=== PATIENT | male | born 1945 | race Caucasian/White ===

== ENCOUNTER 2019-11-14 14:59 | Inpatient (IN) ==
[2019-11-14] MEDS ORDERED: SODIUM CHLORIDE 0.9% 1000ML 1,000 ML IV SCH ×2 (15:45→22:30)
[2019-11-14] MEDS ORDERED: ACETAMINOPHEN 500 MG TAB PO STA (15:46)
[2019-11-14] MEDS ORDERED: SODIUM CHLORIDE 0.9% 250 ML IV PRN (15:53)
[2019-11-14] MEDS ORDERED: ACETAMINOPHEN SUSP 160 MG/5 ML UDC GT STA (15:54)
--- NOTE | 2019-11-14 16:27 | XRay Report ---
XR chest 1V portable CLINICAL HISTORY: Fever. COMPARISON STUDY: PET/CT September 14, 2019. FINDINGS: Right internal jugular [id number] is in place. Note is made of mild cardiomegaly without evidence for pulmonary edema. There is no pneumothorax or pleural effusion. There is no consolidatio n to suggest pneumonia. Several old right rib fractures are present. IMPRESSION: No acute cardiopulmonary findings. ACT 112: Negative or not required by law. Electronically signed by: Tristan Simpson M.D. 11/14/2019 4:26 PM
[2019-11-14 16:38] LABS: Hemoglobin 6.5 g/dL (14.0-18.0); Mean Corpuscular Hemoglobin 29.8 pg (25-34); Mean Corpuscular Hgb Conc 34.2 g/dL (32-36); Mean Corpuscular Volume 87.2 fL (80-100); Mean Platelet Volume 9.6 fL (7.4-10.4); Platelet Count 45 K/uL (130-400); RDW Coefficient of Variation 17.9 % (11.5-14.5); RDW Standard Deviation 54.8 fL (36.4-46.3); Red Blood Count 2.18 M/uL (4.7-6.1); White Blood Count 0.28 K/uL (4.8-10.8)
[2019-11-14 16:45] LABS: Alanine Aminotransferase 28 U/L (12-78); Albumin Level 2.7 gm/dl (3.4-5.0); Aspartate Aminotransferase 21 U/L (15-37); BUN Creatinine Ratio 32.4 (10-20); Blood Urea Nitrogen 38 mg/dl (7-18); Calcium 7.8 mg/dl (8.5-10.1); Carbon Dioxide 29 mmol/L (21-32); Chloride 96 mmol/L (98-107); Est GFR (African American) 71.3; Est GFR (Non-African American) 61.5; Glucose 160 mg/dl (70-99); Potassium 3.6 mmol/L (3.5-5.1); Sodium 132 mmol/L (136-145)
[2019-11-14 16:47] LABS: Albumin Globulin Ratio 0.5 (0.9-2); Alkaline Phosphatase 80 U/L (45-117); Bilirubin,Total 0.5 mg/dl (0.2-1); Total Protein 7.7 gm/dl (6.4-8.2)
[2019-11-14] MEDS ORDERED: CEFEPIME 2,000 MG/20 ML VIAL IV STA (16:52)
[2019-11-14] MEDS ORDERED: VANCOMYCIN CONSULT ACTIVE PRN ×2 (17:02→20:00)
[2019-11-14] MEDS ORDERED: VANCOMYCIN HCL 2,750 MG in SODIUM CHLORIDE 0.9% 500 ML IV ONE (17:02)
[2019-11-14 17:29] LABS: Appearance Urine Clear (Clear); Bacteria Urine Automated Negative (Negative); Bilirubin Urine Negative (Negative); Blood Urine Trace (Negative); Color Urine Yellow; Epithelial Cell Urine Auto >30 /lpf (0-5); Glucose Urine UA Negative (Negative); Ketones Urine Negative (Negative); Leukocyte Esterase Urine Negative (Negative); Nitrite Urine Negative (Negative); Protein Urine 2+ (Negative); RBC Urine Automated 0-4 /hpf (0-4); Specific Gravity Urine 1.018 (1.000-1.030); Urobilinogen Urine Negative (Negative); pH Urine 6.5 (4.5-7.5)
[2019-11-14 17:44] LABS: Influenza A virus by PCR Neg for Influ A (Neg); Influenza B virus by PCR Neg for Influ B (Neg)
[2019-11-14 17:58] LABS: Renal Epithelial Cells Urine 0-5 /lpf (0-5)
--- NOTE | 2019-11-14 18:27 | History & Physical Report ---
Date of Service November 14, 2019 Assessment & Plan (1) Neutropenic fever: The patient has presented with neutropenic fever. The source is not clear so far. He does not have any pulmonary symptoms and his chest x-ray is not suggestive of any infection. He does not have any urinary symptoms either and his urinalysis is not very impressive. We will continue vancomycin per pharmacy and cefepime. The changes on the left side of his neck appear chronic and he did not have any pain or tenderness on palpation. If no source is obvious and he continues to have fever, may obtain a CT scan of the neck to rule out any underlying abscess. Will monitor in PCU for today and provide IV fluids Present on Admission?: Yes (2) Malignant neoplasm of head and neck: We will consult oncology to evaluate for administration of Neupogen. Keep n.p.o. and provide nutrition through his PEG tube. He takes Isosource 1.5 six times a day which will be ordered. DVT prophylaxis is contraindicated because of thrombocytopenia. We will continue zolpidem at night as needed for sleep. 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 The patient was diagnosed with head and neck cancer last year and was started on chemoradiation. He finishes radiation a while ago and had last dose of chemotherapy (cisplatin) on 11/03/2019. For the past 2 to 3 days he had been having fever as high as 102 F. He denied any chest pain or shortness of breath. He denied any runny nose or sore throat. He denied any cough. He denied any abdominal pain, diarrhea or constipation. He is n.p.o. because of the head and neck cancer and is dependent on a tube feeds for his nutrition. He denied any recent weight loss. He has some chronic skin changes and some chronic drainage from the left side of his neck because of radiation treatment. He denied any pain or tenderness in his neck. He denied any urinary symptoms. In the ER he was febrile up to 38.8 C and his white blood cell count was 0.28. He was given vancomycin and cefepime and admission to medicine was requested. The patient stated that he applied Silvadene about a week ago to his neck which caused some rash on all of his body. Most of the rash has disappeared but there is some on his arms that has still persisted. He denies any sick contacts. Allergies Allergy/AdvReac Type Severity Reaction Status Date / Time silver sulfadiazine Allergy Rash Verified 11/14/19 17:32 [From Silvadene] Home Medications Home Medications Medication Instructions Recorded Confirmed Type albuterol sulfate [ProAir HFA] 2 puff INHALATION QID PRN 06/02/19 11/14/19 History zolpidem 10 mg tablet 10 mg FEEDING TUBE HS tab 10/31/19 11/14/19 History acetaminophen [Tylenol Extra 500 mg FEEDING TUBE Q6H PRN 11/14/19 11/14/19 History Strength] potassium chloride 20 meq FEEDING TUBE DAILY@1000 11/14/19 11/14/19 History Past Med/Surg History Social History (Updated 06/21/19 @ 08:30 by Nicci Camacho RN) Preferred Language: Greek Communication Ability: Effective Visual Impairment: No Limitations Hearing Ability: Normal Cloud Engagement Partner Required: No Beliefs That Will Affect Care: Moravian Moravian Beliefs: MENNONITE marital status: Current Living Situation: Spouse current occupational status: retired 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 NAD HENT: Normocephalic, atraumatic, pupils round and equally reactive to light, oral mucosa: Dry Neck: Supple, no lymph nodes palpated, palpable swelling on the left side of the neck, nontender, marked redness of the skin which again is nontender CVS: Normal S1, S2. No murmur, rub or gallop. PMI non displaced. Peripheral pulses normal. Resp: Normal percussion. Normal breath sounds bilaterally. No wheezing or rales heard Abdomen: Soft, non tender, no hepatosplenomegaly. Bowel sounds positive. PEG tube in place. Extremities: No pitting edema Neuro: Power 5/5 throughout, grossly normal sensations, DTR's normal Psychiatry: Normal mood, normal thought process Results & Data Vital Signs (Past 12 Hours) Vital Signs Temp Pulse Resp BP Pulse Ox 11/14/19 16:48 113 H 23 104/63 98 11/14/19 15:31 38.8 C H 117 H 22 98/61 L 99 Laboratory Results Laboratory Results - last 24 hr 11/14/19 11/14/19 11/14/19 16:16 16:16 16:16 WBC 0.28 L* RBC 2.18 L Hgb 6.5 L* Hct 19.0 L* MCV 87.2 MCH 29.8 MCHC 34.2 RDW Std Deviation 54.8 H RDW Coeff of Misa 17.9 H Plt Count 45 L MPV 9.6 Immature Gran % (Auto) Cancelled Neut % (Auto) Cancelled Lymph % (Auto) Cancelled [place] % (Auto) Cancelled Eos % (Auto) Cancelled Baso % (Auto) Cancelled Immature Gran # (Auto) Cancelled Neut # (Auto) Cancelled Lymph # (Auto) Cancelled [place] # (Auto) Cancelled Eos # (Auto) Cancelled Baso # (Auto) Cancelled Neutrophils % (Manual) Cancelled Band Neutrophils % Cancelled Lymphocytes % (Manual) Cancelled Prolymphocyte % Cancelled Reactive Lymphs % (Man) Cancelled Monocytes % (Manual) Cancelled Eosinophils % (Manual) Cancelled Basophils % (Manual) Cancelled Metamyelocytes % (Man) Cancelled Myelocytes % (Man) Cancelled Promyelocytes % (Man) Cancelled Blast Cells % (Manual) Cancelled Plasma Cell % (Manual) Cancelled Other Cells % Cancelled Nucleated RBC % Cancelled Neutrophils # (Manual) Cancelled Band Neutrophils # Cancelled Total Absolute Neuts Cancelled Lymphocytes # (Manual) Cancelled Prolymphocyte # Cancelled Reactive Lymphs # Cancelled Total Abs Lymphocytes Cancelled Monocytes # (Manual) Cancelled Eosinophils # (Manual) Cancelled Basophils # (Manual) Cancelled Metamyelocytes # (Man) Cancelled Myelocytes # (Manual) Cancelled Promyelocytes # (Man) Cancelled Blast Cells # (Man) Cancelled Plasma Cell # (Manual) Cancelled Other Cells # Cancelled Nucleated RBCs # (Man) Cancelled Hypersegmented Neuts Cancelled Hyposegmented Neuts Cancelled Hypogranular Neuts Cancelled Large Granular Lymphs Cancelled # Lrg Granular Lymphs Cancelled Hairy Cells Cancelled Smudge Cells Cancelled Toxic Granulation Cancelled Toxic Vacuolation Cancelled Dohle Bodies Cancelled Kandy Rods Cancelled Hypogranular Platelets Cancelled Clumped Platelets Cancelled Giant Platelets Cancelled Platelet Satelliting Cancelled RBC Morphology Cancelled Polychromasia Cancelled Hypochromasia Cancelled Poikilocytosis Cancelled Basophilic Stippling Cancelled Anisocytosis Cancelled Microcytosis Cancelled Macrocytosis Cancelled Spherocytes Cancelled Pappenheimer Bodies Cancelled Sickle Cells Cancelled Target Cells Cancelled Tear Drop Cells Cancelled Ovalocytes Cancelled Stomatocytes Cancelled Bernal-Deans Bodies Cancelled Echinocytes Cancelled Acanthocytes (Spur) Cancelled Rouleaux Cancelled RBC Agglutinates Cancelled Schistocytes Cancelled RBC Morph Comment Cancelled Sezary Cell Cancelled Sodium 132 L Potassium 3.6 Chloride 96 L Carbon Dioxide 29 Anion Gap 7.0 BUN 38 H Creatinine 1.17 Est Cr Clr Drug Dosing Not Reportable Est GFR ( Amer) 71.3 Est GFR (Non-Af Amer) 61.5 BUN/Creatinine Ratio 32.4 H Glucose 160 H Lactate 2.6 H* Calcium 7.8 L Total Bilirubin 0.5 AST 21 ALT 28 Alkaline Phosphatase 80 Total Protein 7.7 Albumin 2.7 L Globulin 5.0 H Albumin/Globulin Ratio 0.5 L Urine Color Urine Appearance Urine pH Ur Specific [place] Urine Protein Urine Glucose (UA) Urine Ketones Urine Blood Urine Nitrite Urine Bilirubin Urine Urobilinogen Ur Leukocyte Esterase Urine WBC (Auto) Urine RBC (Auto) U Hyaline Cast (Auto) U Epithel Cells (Auto) Urine Bacteria (Auto) Ur Renal Epithelial Cell Urine Yeast Influenza Type A (PCR) Influenza Type B (PCR) Blood Type Antibody Screen Crossmatch 11/14/19 11/14/19 11/14/19 16:28 16:58 16:58 WBC RBC Hgb Hct MCV MCH MCHC RDW Std Deviation RDW Coeff of Misa Plt Count MPV Immature Gran % (Auto) Neut % (Auto) Lymph % (Auto) [place] % (Auto) Eos % (Auto) Baso % (Auto) Immature Gran # (Auto) Neut # (Auto) Lymph # (Auto) [place] # (Auto) Eos # (Auto) Baso # (Auto) Neutrophils % (Manual) Band Neutrophils % Lymphocytes % (Manual) Prolymphocyte % Reactive Lymphs % (Man) Monocytes % (Manual) Eosinophils % (Manual) Basophils % (Manual) Metamyelocytes % (Man) Myelocytes % (Man) Promyelocytes % (Man) Blast Cells % (Manual) Plasma Cell % (Manual) Other Cells % Nucleated RBC % Neutrophils # (Manual) Band Neutrophils # Total Absolute Neuts Lymphocytes # (Manual) Prolymphocyte # Reactive Lymphs # Total Abs Lymphocytes Monocytes # (Manual) Eosinophils # (Manual) Basophils # (Manual) Metamyelocytes # (Man) Myelocytes # (Manual) Promyelocytes # (Man) Blast Cells # (Man) Plasma Cell # (Manual) Other Cells # Nucleated RBCs # (Man) Hypersegmented Neuts Hyposegmented Neuts Hypogranular Neuts Large Granular Lymphs # Lrg Granular Lymphs Hairy Cells Smudge Cells Toxic Granulation Toxic Vacuolation Dohle Bodies Kandy Rods Hypogranular Platelets Clumped Platelets Giant Platelets Platelet Satelliting RBC Morphology Polychromasia Hypochromasia Poikilocytosis Basophilic Stippling Anisocytosis Microcytosis Macrocytosis Spherocytes Pappenheimer Bodies Sickle Cells Target Cells Tear Drop Cells Ovalocytes Stomatocytes Bernal-Deans Bodies Echinocytes Acanthocytes (Spur) Rouleaux RBC Agglutinates Schistocytes RBC Morph Comment Sezary Cell Sodium Potassium Chloride Carbon Dioxide Anion Gap BUN Creatinine Est Cr Clr Drug Dosing Est GFR ( Amer) Est GFR (Non-Af Amer) BUN/Creatinine Ratio Glucose Lactate Calcium Total Bilirubin AST ALT Alkaline Phosphatase Total Protein Albumin Globulin Albumin/Globulin Ratio Urine Color Yellow Urine Appearance Clear Urine pH 6.5 Ur Specific [place] 1.018 Urine Protein 2+ H Urine Glucose (UA) Negative Urine Ketones Negative Urine Blood Trace H Urine Nitrite Negative Urine Bilirubin Negative Urine Urobilinogen Negative Ur Leukocyte Esterase Negative Urine WBC (Auto) 5-10 H Urine RBC (Auto) 0-4 U Hyaline Cast (Auto) 1-5 U Epithel Cells (Auto) >30 H Urine Bacteria (Auto) Negative Ur Renal Epithelial Cell 0-5 Urine Yeast Budding A Influenza Type A (PCR) Neg for Influ A Influenza Type B (PCR) Neg for Influ B Blood Type O Negative Antibody Screen NEGATIVE Crossmatch See Detail Diagnostic Findings Chest x-ray, my interpretation: No acute infiltrate Code Status & VTE Plan VTE Prophylaxis Plan VTE Prophylaxis will be ordered: No
[2019-11-14] MEDS ORDERED: ZOLPIDEM TARTRATE 10 MG TAB PO PRN (20:00)
--- NOTE | 2019-11-14 20:06 | Emergency Department Note ---
Entered by Mari Samuels acting as a scribe for Elaina Morelos MD History of Present Illness General Chief complaint: Referred by Doctor Stated complaint: THROAT CANCER REFFERED BY Source: patient History of Present Illness Onset (ago): day(s) (today) Location: neck Pain Consistency: + other (episode) Maximum Pain Intensity: 0 Quality: + other (referral by a doctor) Associated symptoms: + denies other symptoms (bleeding from anywhere, swelling, urinary symptoms, difficulty moving his bowels), + fever/chills (fever) and + other (low hemoglobin, phlegm production); no nausea/vomiting (vomiting) and no rash The patient is a 74 year old male who presents to the Emergency Room with complaints of an episode of a referral by a doctor occurring today. The patient states that he has cancer in his neck and gets radiation for it. He notes that this morning he had blood work done at [facility] that showed his hemoglobin was 6.1. He reports that he was called and told that he needed to have a transfusion tomorrow morning, but if he couldnt wait, to come to the ED. The patient sates that he didnt feel comfortable waiting because he has also been waking up every morning with a fever of 102. He notes that this morning it was 102.7. He notes that when he first would get chemo to would go to 101, but would come down with Tylenol. He states that it was just his bodys way of regulating itself. He reports that now it has been worse and doesnt come down as easily. The patient complains of a lot of phlegm produced from the cancer in his throat. He notes his last chemo was on the 03 of November and his last radiation was the 10 of November. He notes that he has had 5 blood transfusions since his diagnosis. He notes that he was last transfused 2 weeks ago. The patient denies a cough, bleeding from anywhere, swelling, urinary symptoms, difficulty moving his bowels, vomiting, and new rash. Home Medications Home Medications Medication Instructions Recorded Confirmed Type albuterol sulfate [ProAir HFA] 2 puff INHALATION QID PRN 06/02/19 11/14/19 History zolpidem 10 mg tablet 10 mg FEEDING TUBE HS tab 10/31/19 11/14/19 History acetaminophen [Tylenol Extra 500 mg FEEDING TUBE Q6H PRN 11/14/19 11/14/19 History Strength] potassium chloride 20 meq FEEDING TUBE DAILY@1000 11/14/19 11/14/19 History Allergies Allergy/AdvReac Type Severity Reaction Status Date / Time silver sulfadiazine Allergy Rash Verified 11/14/19 17:32 [From Silvadene] Past Med/Surg History Medical History Alcohol abuse (Chronic) Cellulitis and abscess of left lower extremity Chronic prostatitis (Chronic) Chronic steroid use (Chronic) Difficulty swallowing (Chronic) Started approx. 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---plan to start radiation and chemo Ulcer of calf Surgical History History of biopsy (Chronic) FNA of thyroid nodule showed squamous cell carcinoma 05/23/19 History of colonoscopy (Resolved) Multiple;Adenomatous poly; History of nasal septoplasty (Resolved) History of open reduction and internal fixation (ORIF) procedure (Resolved) right wrist/elbow--hardware in place;Related to fracture and a fall History of prostate biopsy (Resolved) x3--benign History of tonsillectomy and adenoidectomy (Resolved) Hx of right inguinal hernia repair (Resolved) x2 Hx of vasectomy (Resolved) S/P percutaneous endoscopic gastrostomy (PEG) tube placement (Acute) S/P percutaneous endoscopic gastrostomy (PEG) tube placement Family History Mother Endometrial cancer Father , 78yo Parkinsons Brother COPD (chronic obstructive pulmonary disease) Brother Unknown family medical history Sister Breast cancer Colorectal cancer Sleep apnea GERD (gastroesophageal reflux disease) Son Hypertension Daughter No problems noted. 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 and A total of 10 systems reviewed and were otherwise negative Physical Exam Vital Signs Vital Signs - 24 hr 11/14/19 15:31 11/14/19 16:48 11/14/19 17:30 Temperature 38.8 C H Temperature Source Oral Pulse Rate 117 H 113 H 113 H Pulse Rate from SpO2 Sensor 113 H Respiratory Rate 22 23 25 H Blood Pressure 98/61 L 104/63 Blood Pressure Mean 73 72 Pulse Oximetry 99 98 Oxygen Delivery Method Room Air Room Air Sepsis Recent Fever Within 48 Hours Yes Sepsis New/Unexplained Change in Mental Status No Sepsis Action Taken by Nursing Physician Notified 11/14/19 18:00 Temperature Temperature Source Pulse Rate 114 H Pulse Rate from SpO2 Sensor Respiratory Rate 21 Blood Pressure Blood Pressure Mean Pulse Oximetry Oxygen Delivery Method Sepsis Recent Fever Within 48 Hours Sepsis New/Unexplained Change in Mental Status Sepsis Action Taken by Nursing Vital signs reviewed. Noted to be febrile and tachycardic. General: Chronically ill-appearing male, in no significant distress. No discomfort. Spitting up saliva. HEENT: No scleral icterus, PERRLA, neck supple. Tracheostomy in place with some radiation changes to the skin. Cardiovascular: Tachycardic rate and regular rhythm, no extra sounds. Pulmonary: Clear to auscultation bilaterally, normal work of breathing. Abdomen: Soft, nontender, nondistended, positive bowel sounds. G-tube in left upper quadrant. Musculoskeletal: Atraumatic, no peripheral edema. Neurologic: Patient awake alert and oriented x 3. Skin: Warm, dry. Radiation changes to the skin noted on the anterior neck. Course Course 154: The patient was evaluated in room C10. A complete history and physical exam was performed. 1646: I reevaluated the patient and he signed the blood consent at this time. 1656: I discussed the patient's case with Dr. Hsieh- Oncology. No need for irradiated blood. 1703: I reevaluated the patient and updated him on his test results. I discussed the treatment plan with him. He verbally agrees and understands. 1734: I discussed the patient's case with [facility]. He will evaluate the patient for further management. Administered Medications Filgrastim (Neupogen) 300 mcg SQ DAILY [facility] Stop: 12/16/19 11:29 Last Admin: 11/16/19 12:33 Dose: 300 mcg Documented by: [id number] Cefepime HCl 2,000 mg/ Syringe 20 mls @ 5.5 mls/min IV Q8H [facility]; Protocol Stop: 11/17/19 04:59 Last Admin: 11/16/19 12:10 Dose: 5.5 mls/min Documented by: [id number] Admin: 11/16/19 04:52 Dose: 5.5 mls/min Documented by: [id number] Admin: 11/15/19 21:51 Dose: 5.5 mls/min Documented by: [id number] Admin: 11/15/19 13:26 Dose: 5.5 mls/min Documented by: [id number] Admin: 11/15/19 05:38 Dose: 5.5 mls/min Documented by: [id number] Acetaminophen (Ofirmev) 1,000 mg in 100 mls @ 400 mls/hr IV Q8H PRN PRN Reason: Fever Stop: 11/17/19 22:20 Last Infusion: 11/15/19 16:29 Dose: 0 mls/hr Documented by: [id number] Admin: 11/15/19 16:14 Dose: 400 mls/hr Documented by: [id number] Lorazepam (Ativan) 0.5 mg in 1 mls @ 0.5 mls/min IV Q8 PRN PRN Reason: Anxiety Stop: 12/14/19 22:26 Last Admin: 11/16/19 18:05 Dose: 0.5 mls/min Documented by: [id number] Admin: 11/15/19 19:03 Dose: 0.5 mls/min Documented by: [id number] Vancomycin HCl 750 mg/ Sodium (Chloride) 265 mls @ 125 mls/hr IV Q12@0700,1900 [facility]; Protocol Stop: 11/17/19 07:29 Last Admin: 11/16/19 18:05 Dose: 125 mls/hr Documented by: [id number] Infusion: 11/16/19 11:54 Dose: 0 mls/hr Documented by: [id number] Admin: 11/16/19 08:59 Dose: 125 mls/hr Documented by: [id number] Infusion: 11/15/19 22:32 Dose: 0 mls/hr Documented by: [id number] Admin: 11/15/19 20:24 Dose: 125 mls/hr Documented by: [id number] Infusion: 11/15/19 10:37 Dose: 0 mls/hr Documented by: [id number] Admin: 11/15/19 08:23 Dose: 125 mls/hr Documented by: [id number] Fluconazole (Diflucan) 100 mg in 50 mls @ 100 mls/hr IV DAILY@1700 [facility]; Protocol Stop: 12/16/19 16:59 Last Infusion: 11/16/19 16:53 Dose: 100 mls/hr Documented by: [id number] Admin: 11/16/19 16:20 Dose: 100 mls/hr Documented by: [id number] Ioversol (Optiray 320 100ml) 93 ml IV ONCE PRN PRN Reason: Interaction Checking Stop: 11/19/19 11:02 Last Admin: 11/15/19 11:03 Dose: 93 ml Documented by: [id number] Miscellaneous (Check Scopolamine Patch Placement) 1 ea N/A QS [facility] Stop: 12/15/19 00:00 Last Admin: 11/16/19 15:00 Dose: 1 ea Documented by: [id number] Admin: 11/16/19 08:48 Dose: 1 ea Documented by: [id number] Admin: 11/16/19 00:08 Dose: 1 ea Documented by: [id number] Admin: 11/15/19 17:03 Dose: 1 ea Documented by: [id number] Admin: 11/15/19 08:24 Dose: 1 ea Documented by: [id number] Admin: 11/14/19 23:45 Dose: 1 ea Documented by: [id number] Potassium Chloride (Christine Ciel Elix) 20 meq PEG BID [facility] Stop: 12/16/19 11:29 Last Admin: 11/16/19 12:10 Dose: 20 meq Documented by: [id number] Zolpidem Tartrate (Ambien) 10 mg PO HS [facility] Stop: 12/15/19 20:59 Last Admin: 11/15/19 22:00 Dose: 10 mg Documented by: [id number] Discontinued Medications Acetaminophen (Tylenol) 1,000 mg PO NOW STA Stop: 11/14/19 15:47 Last Admin: 11/14/19 17:23 Dose: Not Given Documented by: [id number] Acetaminophen (Children's Acetaminophen) 1,000 mg GT NOW STA Stop: 11/14/19 15:55 Last Admin: 11/14/19 16:40 Dose: 1,000 mg Documented by: [id number] Diphenhydramine HCl (Benadryl) 25 mg IV PRE-TREAT ONE Stop: 11/16/19 02:17 Last Admin: 11/15/19 21:59 Dose: 25 mg Documented by: [id number] Fluconazole (Diflucan) 100 mg PO [facility]; Protocol Stop: 11/20/19 13:59 Last Admin: 11/15/19 17:05 Dose: Not Given Documented by: [id number] Sodium Chloride (Nss 1000ml) 1,000 mls @ 999 mls/hr IV .Q1H1M [facility] Stop: 11/14/19 16:45 Last Infusion: 11/14/19 18:27 Dose: 0 mls/hr Documented by: [id number] Admin: 11/14/19 17:04 Dose: 999 mls/hr Documented by: [id number] Cefepime HCl (Maxipime) 2,000 mg in 20 mls @ 5 mls/min IV NOW STA; Protocol Stop: 11/14/19 16:55 Last Admin: 11/14/19 17:04 Dose: 5 mls/min Documented by: [id number] Vancomycin HCl 2,750 mg/ (Sodium Chloride) 555 mls @ 200 mls/hr IV NOW ONE Stop: 11/14/19 19:31 Last Infusion: 11/14/19 21:25 Dose: 0 mls/hr Documented by: [id number] Admin: 11/14/19 18:38 Dose: 200 mls/hr Documented by: [id number] Sodium Chloride (Nss 1000ml) 1,000 mls @ 100 mls/hr IV .Q10H [facility] Stop: 12/14/19 22:29 Last Infusion: 11/15/19 08:23 Dose: 0 mls/hr Documented by: [id number] Admin: 11/14/19 23:19 Dose: 100 mls/hr Documented by: [id number] Potassium Chloride 20 meq/ (Lactated Ringer's) 1,010 mls @ 80 mls/hr IV .[id number] [facility] Stop: 12/15/19 07:59 Last Infusion: 11/15/19 18:01 Dose: 0 mls/hr Documented by: [id number] Admin: 11/15/19 17:14 Dose: 80 mls/hr Documented by: [id number] Infusion: 11/15/19 17:14 Dose: 100 mls/hr Documented by: [id number] Infusion: 11/15/19 13:22 Dose: 100 mls/hr Documented by: [id number] Infusion: 11/15/19 08:24 Dose: 0 mls/hr Documented by: [id number] Admin: 11/15/19 08:23 Dose: 100 mls/hr Documented by: [id number] Magnesium Sulfate/Dextrose (Magnesium Sulfate / D5w) 1 gm in 100 mls @ 100 mls/hr IV Q1H [facility] Stop: 11/15/19 12:29 Last Infusion: 11/15/19 13:22 Dose: 0 mls/hr Documented by: [id number] Admin: 11/15/19 12:13 Dose: 100 mls/hr Documented by: [id number] Infusion: 11/15/19 11:36 Dose: 100 mls/hr Documented by: [id number] Admin: 11/15/19 10:36 Dose: 100 mls/hr Documented by: [id number] Infusion: 11/15/19 10:22 Dose: 50 mls/hr Documented by: [id number] Infusion: 11/15/19 08:25 Dose: 50 mls/hr Documented by: [id number] Admin: 11/15/19 08:23 Dose: 100 mls/hr Documented by: [id number] Potassium Phosphate 9 mmol/ (Sodium Chloride) 253 mls @ 168 mls/hr IV ONE ONE Stop: 11/15/19 09:30 Last Infusion: 11/15/19 12:13 Dose: 0 mls/hr Documented by: [id number] Infusion: 11/15/19 08:24 Dose: 75 mls/hr Documented by: [id number] Admin: 11/15/19 08:23 Dose: 168 mls/hr Documented by: [id number] Fluconazole (Diflucan) 100 mg in 50 mls @ 100 mls/hr IV NOW ONE; Protocol Stop: 11/15/19 17:29 Last Infusion: 11/15/19 17:45 Dose: 0 mls/hr Documented by: [id number] Admin: 11/15/19 17:15 Dose: 100 mls/hr Documented by: [id number] Potassium Chloride (K Javier / Wtr) 10 meq in 100 mls @ 100 mls/hr IV Q1H [facility] Stop: 11/15/19 19:59 Last Infusion: 11/15/19 20:10 Dose: 0 mls/hr Documented by: [id number] Admin: 11/15/19 19:10 Dose: 100 mls/hr Documented by: [id number] Infusion: 11/15/19 19:07 Dose: 100 mls/hr Documented by: [id number] Admin: 11/15/19 18:07 Dose: 100 mls/hr Documented by: [id number] Potassium Phosphate 15 mmol/ (Sodium Chloride) 255 mls @ 88 mls/hr IV ONE ONE Stop: 11/15/19 21:23 Last Infusion: 11/15/19 21:49 Dose: 0 mls/hr Documented by: [id number] Admin: 11/15/19 18:55 Dose: 88 mls/hr Documented by: [id number] Acetaminophen (Ofirmev) 1,000 mg in 100 mls @ 400 mls/hr IV TODAY@2000 [facility] Stop: 11/15/19 23:59 Last Infusion: 11/15/19 22:14 Dose: 0 mls/hr Documented by: [id number] Admin: 11/15/19 21:59 Dose: 400 mls/hr Documented by: [id number] Potassium Chloride (K Javier / Wtr) 10 meq in 100 mls @ 100 mls/hr IV Q1H [facility] Stop: 11/16/19 11:14 Last Infusion: 11/16/19 12:15 Dose: 0 mls/hr Documented by: [id number] Admin: 11/16/19 11:14 Dose: 100 mls/hr Documented by: [id number] Infusion: 11/16/19 11:01 Dose: 100 mls/hr Documented by: [id number] Admin: 11/16/19 10:01 Dose: 100 mls/hr Documented by: [id number] Miscellaneous (Stop Order) 1 ea N/A TODAY@2014 ONE Stop: 11/14/19 20:16 Last Admin: 11/14/19 20:58 Dose: 1 ea Documented by: [id number] Scopolamine (Transderm-Scop) 1.5 mg TD ONE ONE Stop: 11/14/19 21:45 Last Admin: 11/14/19 22:02 Dose: 1.5 mg Documented by: [id number] Critical Care Time Critical Care Time: Yes Total Critical Care Time: 35 I have personally spent 35 minutes of critical care time in the direct management of this patient. This includes bedside care, interpretation of diagnostic studies, and testing, discussion with consultants, patient, and family members, and other required patient management activities. This 35 minutes is in excess of all separately billable procedures. Medical Decision Making Differential Diagnosis Differential diagnosis includes etiologies such as sepsis, UTI, pneumonia, metabolic, electrolyte abnormalities, cardiac sources, intracerebral event, toxicologic, neurologic, as well as others were entertained. Medical Records Attestation: I reviewed the patient's medical records. Home Medications Current Medication List: was personally reviewed by me Laboratory Data Attestation: I reviewed the patient's lab results. Result diagrams: 11/16/19 07:28 11/16/19 07:28 Lab Results 11/14/19 11/14/19 11/14/19 Range/Units 16:16 16:16 16:16 WBC 0.28 L* (4.8-10.8) K/uL RBC 2.18 L (4.7-6.1) M/uL Hgb 6.5 L* (14.0-18.0) g/dL Hct 19.0 L* (42-52) % MCV 87.2 (80-100) fL MCH 29.8 (25-34) pg MCHC 34.2 (32-36) g/dL RDW Std Deviation 54.8 H (36.4-46.3) fL RDW Coeff of Misa 17.9 H (11.5-14.5) % Plt Count 45 L (130-400) K/uL MPV 9.6 (7.4-10.4) fL Immature Gran % (Auto) Cancelled Neut % (Auto) Cancelled Lymph % (Auto) Cancelled [place] % (Auto) Cancelled Eos % (Auto) Cancelled Baso % (Auto) Cancelled Immature Gran # (Auto) Cancelled Neut # (Auto) Cancelled Lymph # (Auto) Cancelled [place] # (Auto) Cancelled Eos # (Auto) Cancelled Baso # (Auto) Cancelled Neutrophils % (Manual) Cancelled Band Neutrophils % Cancelled Lymphocytes % (Manual) Cancelled Prolymphocyte % Cancelled Reactive Lymphs % (Man) Cancelled Monocytes % (Manual) Cancelled Eosinophils % (Manual) Cancelled Basophils % (Manual) Cancelled Metamyelocytes % (Man) Cancelled Myelocytes % (Man) Cancelled Promyelocytes % (Man) Cancelled Blast Cells % (Manual) Cancelled Plasma Cell % (Manual) Cancelled Other Cells % Cancelled Nucleated RBC % Cancelled Neutrophils # (Manual) Cancelled Band Neutrophils # Cancelled Total Absolute Neuts Cancelled Lymphocytes # (Manual) Cancelled Prolymphocyte # Cancelled Reactive Lymphs # Cancelled Total Abs Lymphocytes Cancelled Monocytes # (Manual) Cancelled Eosinophils # (Manual) Cancelled Basophils # (Manual) Cancelled Metamyelocytes # (Man) Cancelled Myelocytes # (Manual) Cancelled Promyelocytes # (Man) Cancelled Blast Cells # (Man) Cancelled Plasma Cell # (Manual) Cancelled Other Cells # Cancelled Nucleated RBCs # (Man) Cancelled Hypersegmented Neuts Cancelled Hyposegmented Neuts Cancelled Hypogranular Neuts Cancelled Large Granular Lymphs Cancelled # Lrg Granular Lymphs Cancelled Hairy Cells Cancelled Smudge Cells Cancelled Toxic Granulation Cancelled Toxic Vacuolation Cancelled Dohle Bodies Cancelled Kandy Rods Cancelled Hypogranular Platelets Cancelled Clumped Platelets Cancelled Giant Platelets Cancelled Platelet Satelliting Cancelled RBC Morphology Cancelled Polychromasia Cancelled Hypochromasia Cancelled Poikilocytosis Cancelled Basophilic Stippling Cancelled Anisocytosis Cancelled Microcytosis Cancelled Macrocytosis Cancelled Spherocytes Cancelled Pappenheimer Bodies Cancelled Sickle Cells Cancelled Target Cells Cancelled Tear Drop Cells Cancelled Ovalocytes Cancelled Stomatocytes Cancelled [place] Bodies Cancelled Echinocytes Cancelled Acanthocytes (Spur) Cancelled Rouleaux Cancelled RBC Agglutinates Cancelled Schistocytes Cancelled RBC Morph Comment Cancelled Sezary Cell Cancelled Sodium 132 L (136-145) mmol/L Potassium 3.6 (3.5-5.1) mmol/L Chloride 96 L (98-107) mmol/L Carbon Dioxide 29 (21-32) mmol/L Anion Gap 7.0 (3-11) BUN 38 H (7-18) mg/dl Creatinine 1.17 (0.6-1.4) mg/dl Est Cr Clr Drug Dosing Not Reportable Est GFR ( Amer) 71.3 Est GFR (Non-Af Amer) 61.5 BUN/Creatinine Ratio 32.4 H (10-20) Glucose 160 H (70-99) mg/dl Lactate 2.6 H* (0.4-2.0) mmol/L Calcium 7.8 L (8.5-10.1) mg/dl Total Bilirubin 0.5 (0.2-1) mg/dl AST 21 (15-37) U/L ALT 28 (12-78) U/L Alkaline Phosphatase 80 (45-117) U/L Total Protein 7.7 (6.4-8.2) gm/dl Albumin 2.7 L (3.4-5.0) gm/dl Globulin 5.0 H (2.5-4.0) gm/dl Albumin/Globulin Ratio 0.5 L (0.9-2) Urine Color Urine Appearance (Clear) Urine pH (4.5-7.5) Ur Specific [place] (1.000-1.030) Urine Protein (Negative) Urine Glucose (UA) (Negative) Urine Ketones (Negative) Urine Blood (Negative) Urine Nitrite (Negative) Urine Bilirubin (Negative) Urine Urobilinogen (Negative) Ur Leukocyte Esterase (Negative) Urine WBC (Auto) (0-5) /hpf Urine RBC (Auto) (0-4) /hpf U Hyaline Cast (Auto) (0-5) /lpf U Epithel Cells (Auto) (0-5) /lpf Urine Bacteria (Auto) (Negative) Ur Renal Epithelial Cell (0-5) /lpf Urine Yeast (None Prsent) Influenza Type A (PCR) (Neg) Influenza Type B (PCR) (Neg) Blood Type Antibody Screen Crossmatch 11/14/19 11/14/19 11/14/19 Range/Units 16:28 16:58 16:58 WBC (4.8-10.8) K/uL RBC (4.7-6.1) M/uL Hgb (14.0-18.0) g/dL Hct (42-52) % MCV (80-100) fL MCH (25-34) pg MCHC (32-36) g/dL RDW Std Deviation (36.4-46.3) fL RDW Coeff of Misa (11.5-14.5) % Plt Count (130-400) K/uL MPV (7.4-10.4) fL Immature Gran % (Auto) Neut % (Auto) Lymph % (Auto) [place] % (Auto) Eos % (Auto) Baso % (Auto) Immature Gran # (Auto) Neut # (Auto) Lymph # (Auto) [place] # (Auto) Eos # (Auto) Baso # (Auto) Neutrophils % (Manual) Band Neutrophils % Lymphocytes % (Manual) Prolymphocyte % Reactive Lymphs % (Man) Monocytes % (Manual) Eosinophils % (Manual) Basophils % (Manual) Metamyelocytes % (Man) Myelocytes % (Man) Promyelocytes % (Man) Blast Cells % (Manual) Plasma Cell % (Manual) Other Cells % Nucleated RBC % Neutrophils # (Manual) Band Neutrophils # Total Absolute Neuts Lymphocytes # (Manual) Prolymphocyte # Reactive Lymphs # Total Abs Lymphocytes Monocytes # (Manual) Eosinophils # (Manual) Basophils # (Manual) Metamyelocytes # (Man) Myelocytes # (Manual) Promyelocytes # (Man) Blast Cells # (Man) Plasma Cell # (Manual) Other Cells # Nucleated RBCs # (Man) Hypersegmented Neuts Hyposegmented Neuts Hypogranular Neuts Large Granular Lymphs # Lrg Granular Lymphs Hairy Cells Smudge Cells Toxic Granulation Toxic Vacuolation Dohle Bodies Kandy Rods Hypogranular Platelets Clumped Platelets Giant Platelets Platelet Satelliting RBC Morphology Polychromasia Hypochromasia Poikilocytosis Basophilic Stippling Anisocytosis Microcytosis Macrocytosis Spherocytes Pappenheimer Bodies Sickle Cells Target Cells Tear Drop Cells Ovalocytes Stomatocytes [place] Bodies Echinocytes Acanthocytes (Spur) Rouleaux RBC Agglutinates Schistocytes RBC Morph Comment Sezary Cell Sodium (136-145) mmol/L Potassium (3.5-5.1) mmol/L Chloride (98-107) mmol/L Carbon Dioxide (21-32) mmol/L Anion Gap (3-11) BUN (7-18) mg/dl Creatinine (0.6-1.4) mg/dl Est Cr Clr Drug Dosing Est GFR ( Amer) Est GFR (Non-Af Amer) BUN/Creatinine Ratio (10-20) Glucose (70-99) mg/dl Lactate (0.4-2.0) mmol/L Calcium (8.5-10.1) mg/dl Total Bilirubin (0.2-1) mg/dl AST (15-37) U/L ALT (12-78) U/L Alkaline Phosphatase (45-117) U/L Total Protein (6.4-8.2) gm/dl Albumin (3.4-5.0) gm/dl Globulin (2.5-4.0) gm/dl Albumin/Globulin Ratio (0.9-2) Urine Color Yellow Urine Appearance Clear (Clear) Urine pH 6.5 (4.5-7.5) Ur Specific [place] 1.018 (1.000-1.030) Urine Protein 2+ H (Negative) Urine Glucose (UA) Negative (Negative) Urine Ketones Negative (Negative) Urine Blood Trace H (Negative) Urine Nitrite Negative (Negative) Urine Bilirubin Negative (Negative) Urine Urobilinogen Negative (Negative) Ur Leukocyte Esterase Negative (Negative) Urine WBC (Auto) 5-10 H (0-5) /hpf Urine RBC (Auto) 0-4 (0-4) /hpf U Hyaline Cast (Auto) 1-5 (0-5) /lpf U Epithel Cells (Auto) >30 H (0-5) /lpf Urine Bacteria (Auto) Negative (Negative) Ur Renal Epithelial Cell 0-5 (0-5) /lpf Urine Yeast Budding A (None Prsent) Influenza Type A (PCR) Neg for Influ A (Neg) Influenza Type B (PCR) Neg for Influ B (Neg) Blood Type O Negative Antibody Screen NEGATIVE Crossmatch See Detail Imaging Data Radiologist's Impression: Radiology results as stated below per my review and the radiologist's interpretation: XR chest 1V portable CLINICAL HISTORY: Fever. COMPARISON STUDY: PET/CT September 14, 2019. FINDINGS: Right internal jugular [id number] is in place. Note is made of mild cardiomegaly without evidence for pulmonary edema. There is no pneumothorax or pleural effusion. There is no consolidation to suggest pneumonia. Several old right rib fractures are present. IMPRESSION: No acute cardiopulmonary findings. ACT 112: Negative or not required by law. Electronically signed by: Tristan Simpson M.D. 11/14/2019 4:26 PM ECG Data Additional Comments: An order for cardiac monitoring was placed and pt found to be in a sinus tachycardia at 115 bpm Blood Pressure Blood Pressure Findings: Normal blood pressure Blood Pressure Disposition: did not require urgent referral MDM Narrative This pt was evaluated and appeared to be in no distress. Pt is found to be febrile and tachycardic. IV access was obtained and IVF were initiated. Blood cx and lactate were ordered. IV cefepime and vancomycin were administered as pt is noted to be markedly leukopenic. No differential was performed as WBC is too low. Lactate is 2.6 with hbg 6.5. PRBC were ordered and consent signed. Consult was placed with Dr Hsieh of oncology. He states pt does not need irradiated blood products. Case was d/w [facility] hospitalist who will evaluate for further management. Pt is aware of the plan anad agrees. Impression & Plan Sepsis, Neutropenia, Anemia Discharge Plan Visit Data *Final* Discharge Date/Time: 11/14/19 19:19 Chief Complaint: Referred by Doctor Stated Complaint: THROAT CANCER REFFERED BY ED Provider: Elaina Morelos Discharge Problem: Sepsis, Neutropenia, Anemia Patient Disposition: Admitted As Inpatient Discharge Instructions Interventions: ED Discharge Assessment Last Done: 11/14/19 19:19 Discharge Problem: Sepsis Qualifiers: Sepsis type: sepsis due to unspecified organism Sepsis acute organ dysfunction status: unspecified Qualified Code(s): A41.9 - Sepsis, unspecified organism Neutropenia Qualifiers: Neutropenia type: secondary to cancer chemotherapy Qualified Code(s): D70.1 - Agranulocytosis secondary to cancer chemotherapy Anemia Qualifiers: Anemia type: bone marrow failure Bone marrow failure anemia type: pancytopenia, antineoplastic chemotherapy-induced Qualified Code(s): D61.810 - Antineoplastic chemotherapy induced pancytopenia The scribe's documentation has been prepared under my direction and personally reviewed by me in its entirety. I confirm that the note above accurately reflects all work, treatment, procedures, and medical decision making performed by me.
[2019-11-14] MEDS ORDERED: [UNRECOGNIZED DRUG - REMARK] ONE (20:15)
[2019-11-14] MEDS ORDERED: SCOPOLAMINE 1.5 MG TDSY TD ONE (21:44)
[2019-11-14] MEDS ORDERED: ACETAMINOPHEN 1,000 MG/100 ML VIAL IV PRN (22:21)
[2019-11-14] MEDS ORDERED: ATROPINE SULFATE 1% OP SOLN 2 ML BTL SL PRN (22:23)
[2019-11-14] MEDS ORDERED: ALBUTEROL HFA 8 GM INHALER INH PRN (22:33)
[2019-11-14] MEDS: CHECK SCOPOLAMINE PATCH PLACEMENT SCH (23:45)
[2019-11-15] MEDS: CEFEPIME 2,000 MG in SYRINGE 7.5 ML IV SCH ×3 (05:38→21:51)
[2019-11-15 06:35] LABS: Hematocrit (blood only) 20.7 % (42-52); Hemoglobin 7.1 g/dL (14.0-18.0); Mean Corpuscular Hemoglobin 29.8 pg (25-34); Mean Corpuscular Hgb Conc 34.3 g/dL (32-36); Mean Platelet Volume 9.4 fL (7.4-10.4); Platelet Count 40 K/uL (130-400); RDW Coefficient of Variation 16.8 % (11.5-14.5); RDW Standard Deviation 49.8 fL (36.4-46.3); Red Blood Count 2.38 M/uL (4.7-6.1); White Blood Count 0.28 K/uL (4.8-10.8)
[2019-11-15 07:03] LABS: BUN Creatinine Ratio 35.7 (10-20); Calcium 7.5 mg/dl (8.5-10.1); Creatinine Clr Calc Pharmacy 63.9 ml/min; Est GFR (African American) 98.3; Est GFR (Non-African American) 84.8; Magnesium 1.2 mg/dl (1.8-2.4); Phosphorus 1.6 mg/dl (2.5-4.9)
[2019-11-15] MEDS ORDERED: POTASSIUM PHOS 3 MMOL/1 ML INFUSION IV STA ×2 (07:41→18:13)
[2019-11-15] MEDS ORDERED: POTASSIUM PHOSPHATE 9 MMOL in SODIUM CHLORIDE 0.9% 250 ML IV ONE (08:00)
[2019-11-15 08:18] LABS: Albumin Level 2.3 gm/dl (3.4-5.0); Bilirubin Direct 0.3 mg/dl (0-0.2); Bilirubin,Total 1.1 mg/dl (0.2-1); Total Protein 6.9 gm/dl (6.4-8.2)
[2019-11-15] MEDS: POTASSIUM CHLORIDE 20 MEQ in LACTATED RINGER'S 1,000 ML IV SCH ×2 (08:23→17:14)
[2019-11-15] MEDS: MAGNESIUM SULFATE / D5W 1 GM/100 ML BAG IV SCH ×3 (08:23→12:13)
[2019-11-15] MEDS: VANCOMYCIN HCL 750 MG in SODIUM CHLORIDE 0.9% 250 ML IV SCH ×2 (08:23→20:24)
[2019-11-15] MEDS: CHECK SCOPOLAMINE PATCH PLACEMENT SCH ×2 (08:24→17:03)
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
[2019-11-15] MEDS ORDERED: ALBUT/IPRATROP 3MG/0.5MG NEB 3 ML VIAL NEB PRN (09:46)
[2019-11-15] MEDS ORDERED: ALBUTEROL HFA 8 GM INHALER INH PRN (09:47)
[2019-11-15] MEDS ORDERED: VANCOMYCIN HCL 1,000 MG in SODIUM CHLORIDE 0.9% 250 ML IV SCH (10:00)
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
[2019-11-15] MEDS ORDERED: IOVERSOL 100ml IV PRN (11:03)
--- NOTE | 2019-11-15 11:44 | CT Scan Report ---
CT SCAN OF THE NECK WITH IV CONTRAST CLINICAL HISTORY: Head and neck cancer. Clinical concern for abscess. COMPARISON STUDY: CT of the neck dated 05/19/2019. PET/CT dated 08/24/2019. Radiation treatment plann ing CT dated 09/14/2019. TECHNIQUE: Following the IV administration of 93 cc of Optiray 320, CT scan of the soft tissues of e neck was performed from the skull base to the upper chest. Images are reviewed in the axial, sagitt al, and coronal planes. IV contrast was administered without complication. A dose lowering techniqu e was utilized adhering to the principles of ALARA. CT DOSE: 351.52 mGy.cm FINDINGS: Soft tissues pharynx: There is extensive superficial and deep soft tissue induration identified throu ghout the left anterior lower neck with overlying dermal thickening which extends to the larynx. The large heterogeneous mass lesion seen on 05/19/2019 in this region has significantly decreased in size from previous. There is no organized fluid collection to suggest abscess. There is a small pocket of gas in the left lower neck seen on image #362 which appears to extend beyond the wall of the esophagu s. 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 The nasophary nx and oropharynx are normal in appearance. Mucosal hyperemia is noted in the larynx. The pharyngeal airway is patent. The vocal cords are symmetric. There is infiltration of the left parapharyngeal fat . The prevertebral/retropharyngeal soft tissues are within normal limits. Circumferential wall thicke bernardo and mucosal edema is seen within the upper esophagus. Lymphadenopathy: Prominent left supraclavicular nodes measure up to 7 mm in length. No pathologically enlarged cervical lymph nodes are identified Thyroid: The left lobe of the thyroid gland is diminutive. The right lobe is normal in appearance. Salivary glands: The parotid and submandibular glands are within normal limits. Brain parenchyma: The visualized brain parenchyma at the skull base is normal in appearance. Vascular structures: There is advanced atherosclerotic plaque with at least moderate stenosis at the origin of the right internal carotid artery. The left internal carotid artery is widely patent. The v ertebral arteries are clear. The jugular veins are patent bilaterally. A right internal jugular centr al venous infusion port is in place. Skeletal structures: The skeletal structures are osteopenic. Imaged portions of the calvarium at the skull base are within normal limits. The cervical spine appears intact noting multilevel spondylosis. No lytic or blastic lesion is seen. There is chronic posttraumatic deformity of the left clavicle. A dvanced arthritic change is noted in the temporomandibular joints, left greater than right. Sinuses and mastoids: There is trace mucosal thickening within the maxillary antra. The remaining par anasal sinuses are clear. There is a large right mastoid effusion. The left mastoid air cells are karen ar. Lung apices: Visualized apical lung parenchyma is clear. IMPRESSION: 1. There is no organized/drainable fluid collection identified to indicate abscess as clinically quer ied. 2. Significant improvement in the large infiltrative and heterogeneous mass lesion centered in the le ft lower neck as compared to prior examinations. 3. There is diffuse infiltration of the superficial and deep soft tissues with overlying dermal thick ening seen in the left lower neck as above. This likely represents treatment related change. Residual tumor and/or cellulitis would be impossible to exclude. 4. 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 This is similar to previous. 5. There is circumferential wall thickening and edema of the upper esophagus. There is also mucosal h yperemia involving the larynx and infiltration of the left parapharyngeal fat. Again, these findings are likely treatment related. Clinical correlation will be required. 6. Subcentimeter left supra clavicular nodes are pathologically indeterminant and likely reactive bas is. 7. There is at least moderate stenosis at the origin of the right internal carotid artery. ACT 112: Negative or not required by law. Electronically signed by: Deon Ontiveros M.D. 11/15/2019 11:43 AM
--- NOTE | 2019-11-15 13:48 | Infectious Disease Consult ---
Date of Consultation November 15, 2019 Assessment & Plan (1) Neutropenic fever: continue abx, follow cultures. will add fluconazole emperically for yeast on ua and await culture. significant ep cells, may be contaminant. will follow. (2) Squamous cell carcinoma of neck: History of Present Illness Attending Physician: Nilda Jones MD pt admitted with fever. had chemo and xrt for head and neck cancer. pres ent. states he is feeling much better, tmax 38.8, having fevers since admission. placed on cefepime and vanco, tolerating well. wbc 0.28, no diff. Lactate initially 3, now 0.9. UA 5-10 wbc, >30 ep cells, no bacteria, yeast noted. Flu swab negative, cxr negative. neck wound culture pending. dressing intact, no pain, no abd pain, no n/v/d. peg functioning, port in place, no pain, working well. no cp, sob, cough, wheeze. tolerating abx. Allergies Allergy/AdvReac Type Severity Reaction Status Date / Time silver sulfadiazine Allergy Rash Verified 11/14/19 17:32 [From Silvadene] Home Medications Home Medications Medication Instructions Recorded Confirmed Type albuterol sulfate [ProAir HFA] 2 puff INHALATION QID PRN 06/02/19 11/14/19 History zolpidem 10 mg tablet 10 mg FEEDING TUBE HS tab 10/31/19 11/14/19 History acetaminophen [Tylenol Extra 500 mg FEEDING TUBE Q6H PRN 11/14/19 11/14/19 History Strength] potassium chloride 20 meq FEEDING TUBE DAILY@1000 11/14/19 11/14/19 History Patient History Medical History Alcohol abuse (Chronic) Cellulitis and abscess of left lower extremity Chronic prostatitis (Chronic) Chronic steroid use (Chronic) Difficulty swallowing (Chronic) Started approx. 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 05/23/19 History of colonoscopy (Resolved) Multiple;Adenomatous poly; History of nasal septoplasty (Resolved) History of open reduction and internal fixation (ORIF) procedure (Resolved) right wrist/elbow--hardware in place;Related to fracture and a fall History of prostate biopsy (Resolved) x3--benign History of tonsillectomy and adenoidectomy (Resolved) Hx of right inguinal hernia repair (Resolved) x2 Hx of vasectomy (Resolved) S/P percutaneous endoscopic gastrostomy (PEG) tube placement (Acute) S/P percutaneous endoscopic gastrostomy (PEG) tube placement Family History Mother Endometrial cancer Father , 78yo Parkinsons Brother COPD (chronic obstructive pulmonary disease) Brother Unknown family medical history Sister Breast cancer Colorectal cancer Sleep apnea GERD (gastroesophageal reflux disease) Son Hypertension Daughter No problems noted. 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 Other Information That Helps Us Care for You: No Feels Safe at Home: Yes Safety Concerns: Feels Safe At This Time Smoking Status: Never smoker Second Hand Exposure: No ; Hx Alcohol Use: No Hx Substance Use: No Diet Comment: Only able to eat liquids/very soft foods; caffeine: Yes (1 cup/day) during the past year weight has: remained stable Review of Systems Review of Systems: All systems reviewed & are unremarkable except as noted in HPI & below Physical Exam Constitutional: WD/WN, vitals as above Eyes: PERRL, conjunctivae normal, anicteric sclerae ENMT: external ear and nose normal, oropharynx normal Neck: Thyroid: + thyroid mass (dressing intact) Respiratory: normal respiratory effort, lungs clear to auscultation Cardiovascular: RRR, no murmur, no edema Gastrointestinal (Abdomen): normal bowel sounds, soft, nontender, no hepatosplenomegaly Musculoskeletal: no cyanosis or clubbing, extremities motor strength 5/5 Skin: no rashes, warm and dry + wound (dressing c/d/i) Psychiatric: A+Ox3, euthymic affect Results & Data ([facility]) Vital Signs (Past 12 Hours) Vital Signs Temp Pulse Resp BP Pulse Ox 11/15/19 11:20 37.2 C 99 H 20 114/68 98 11/15/19 08:00 37.4 C 102 H 18 118/60 94 11/15/19 05:00 37.4 C 104 H 20 113/69 98 PG Care Time/CCT Total # of Minutes Spent Total Time Spent with Patient: Total time spent is greater than 50% in coordination of care (as documented) at patient's floor/unit and/or counseling patient: Coding Level of Care Code 76936 Inpt Consult Level 4 Diagnoses Neutropenic fever D70.9; R50.81 Squamous cell carcinoma of neck C44.42
[2019-11-15] MEDS ORDERED: FLUCONAZOLE 100 MG TAB PO SCH (14:00)
[2019-11-15] MEDS ORDERED: FLUCONAZOLE 100 MG/50 ML BAG IV ONE (17:00)
[2019-11-15 17:25] LABS: Hematocrit (blood only) 19.6 % (42-52); Hemoglobin 6.8 g/dL (14.0-18.0)
[2019-11-15 17:30] LABS: Calcium 6.8 mg/dl (8.5-10.1); Creatinine Clr Calc Pharmacy 63.2 ml/min; Est GFR (African American) 97.9; Est GFR (Non-African American) 84.4; Magnesium 1.8 mg/dl (1.8-2.4); Potassium 3.1 mmol/L (3.5-5.1)
[2019-11-15] MEDS ORDERED: SODIUM CHLORIDE 0.9% 250 ML IV PRN ×2 (17:34→18:15)
[2019-11-15 17:44] LABS: Phosphorus 1.2 mg/dl (2.5-4.9)
[2019-11-15] MEDS: POTASSIUM CHLORIDE / WTR 10 MEQ/100 ML PLCT IV SCH ×2 (18:07→19:10)
[2019-11-15] MEDS ORDERED: DiphenhydrAMINE HCL 50 MG/ML VIAL IV ONE (18:16)
[2019-11-15] MEDS ORDERED: POTASSIUM PHOSPHATE 15 MMOL in SODIUM CHLORIDE 0.9% 250 ML IV ONE (18:30)
[2019-11-15] MEDS ORDERED: ACETAMINOPHEN 500 MG TAB PO SCH (18:45)
[2019-11-15] MEDS: LORazepam 0.5 MG/1 ML VIAL IV PRN (19:03)
[2019-11-15 19:15] LABS: Reticulocyte % < 0.5 % (0.5-2.0); Reticulocytes # < 0.02 10^6/uL (0.02-0.10)
[2019-11-15] MEDS ORDERED: Nursing to Pharmacy Communication ONE (19:33)
[2019-11-15] MEDS ORDERED: ACETAMINOPHEN 1,000 MG/100 ML VIAL IV SCH (20:00)
[2019-11-15 20:05] LABS: Fibrinogen 506 mg/dl (184-400)
[2019-11-15 20:19] LABS: D Dimer 1510 ug/L FEU (0-500)
[2019-11-15] MEDS: ZOLPIDEM TARTRATE 10 MG TAB PO SCH (22:00)
[2019-11-15 22:23] LABS: Potassium 3.3 mmol/L (3.5-5.1)
[2019-11-15 22:35] LABS: Phosphorus 2.6 mg/dl (2.5-4.9)
[2019-11-16] MEDS: CHECK SCOPOLAMINE PATCH PLACEMENT SCH ×4 (00:08→23:27)
[2019-11-16] MEDS: CEFEPIME 2,000 MG in SYRINGE 7.5 ML IV SCH ×3 (04:52→21:41)
[2019-11-16] MEDS ORDERED: VANCOMYCIN TROUGH ONE (07:30)
[2019-11-16 08:04] LABS: Hematocrit (blood only) 23.3 % (42-52); Hemoglobin 8.2 g/dL (14.0-18.0); Mean Corpuscular Hemoglobin 29.6 pg (25-34); Mean Corpuscular Hgb Conc 35.2 g/dL (32-36); Mean Corpuscular Volume 84.1 fL (80-100); RDW Coefficient of Variation 16.5 % (11.5-14.5); RDW Standard Deviation 49.1 fL (36.4-46.3); Red Blood Count 2.77 M/uL (4.7-6.1); White Blood Count 0.42 K/uL (4.8-10.8)
[2019-11-16 08:18] LABS: Mean Platelet Volume 9.9 fL (7.4-10.4); Platelet Count 51 K/uL (130-400)
[2019-11-16 08:21] LABS: Platelet Estimate Decreased (Normal)
[2019-11-16 08:34] LABS: Albumin Globulin Ratio 0.5 (0.9-2); Albumin Level 2.1 gm/dl (3.4-5.0); BUN Creatinine Ratio 27.4 (10-20); Calcium 7.4 mg/dl (8.5-10.1); Creatinine Clr Calc Pharmacy 63.3 ml/min; Est GFR (African American) 95.3; Est GFR (Non-African American) 82.2; Globulin 4.6 gm/dl (2.5-4.0); Magnesium 1.7 mg/dl (1.8-2.4); Phosphorus 1.7 mg/dl (2.5-4.9); Potassium 2.8 mmol/L (3.5-5.1); Total Protein 6.7 gm/dl (6.4-8.2)
--- NOTE | 2019-11-16 08:44 | Pharmacy Report ---
Pharmacy Abx Dose Short Note - Date of Service November 16, 2019 - Assessment & Plan Assessment 74 year old M receiving empiric vancomycin, cefepime, and fluconazole for treatment of neutropenic fever Day # 3 of antimicrobial therapy. Tmax (11/15/19): 38.2, WBC: 0.42, renal function stable, cultures negative at this time Plan Vancomycin: * Patient meets criteria for vancomycin AUC dosing nomogram * AUC/CHUY is the preferred PK/PD target for vancomycin * Target AUC/CHUY = 400-600 * Trough level of 14.9 mcg/mL is predicted to achieve target AUC/CHUY * AUC guided dosing is effective and associated with decreased risk of nephrotoxicity * Trough levels poorly correlate with AUC/CHUY and trough monitoring has been associated with increased risk of nephrotoxicity Cefepime: * 2 g IV q8h - target dose (appropriate based on renal function and indication) Fluconazole: * Fluconazole 100 mg IV q24h * Preliminary urine culture reveals no growth, UA with budding yeast and > 30 epithelial cells - contaminant? Pharmacy will continue to follow and will adjust dose/frequency as necessary. Thank you.
[2019-11-16] MEDS: VANCOMYCIN HCL 750 MG in SODIUM CHLORIDE 0.9% 250 ML IV SCH ×2 (08:59→18:05)
[2019-11-16] MEDS: POTASSIUM CHLORIDE / WTR 10 MEQ/100 ML PLCT IV SCH ×2 (10:01→11:14)
--- NOTE | 2019-11-16 11:21 | Infectious Disease Progress Nt ---
Date of Service November 16, 2019 Assessment & Plan (1) Neutropenic fever: continue abx, follow cultures. will add fluconazole emperically for yeast on ua and await culture. significant ep cells, may be contaminant. will follow. (2) Squamous cell carcinoma of neck: Admission and Anticipated Discharge Date Admission Date: November 14, 2019 Subjective pt afebrile. wbc increased to 0.4. cultures negative, ct neck without abscess and decreased mass in neck. tolerating emperic abx. Results & Data ([facility]) Vital Signs (Past 12 Hours) Vital Signs Temp Pulse Pulse Resp BP BP Pulse Ox 11/16/19 07:43 36.8 C 95 H 20 136/76 95 11/16/19 03:45 36.5 C 111 H 26 H 127/73 97 11/16/19 02:17 36.6 C 102 H 22 101/54 L 94 11/16/19 01:48 37 C 102 H 24 118/70 92 11/16/19 00:48 37.1 C 96 H 20 101/58 L 96 11/16/19 00:00 96 H 11/15/19 23:48 36.7 C 108 H 24 105/58 L 96 Laboratory Results Microbiology 11/14/19 16:16 Blood Aerobic Blood Culture - Preliminary No growth in Aerobic bottle after 24 hours. 11/14/19 16:16 Blood Anaerobic Blood Culture - Preliminary No growth in Anaerobic bottle after 24 hours. 11/14/19 16:28 Blood Aerobic Blood Culture - Preliminary No growth in Aerobic bottle after 24 hours. 11/14/19 16:28 Blood Anaerobic Blood Culture - Preliminary No growth in Anaerobic bottle after 24 hours. 11/14/19 16:58 Urine,Clean Catch Urine Culture - Preliminary No growth - Less than 1,000 colonies/mL, Final report to follow. 11/14/19 23:40 Neck Gram Stain - Final PG Care Time/CCT Total # of Minutes Spent Total Time Spent with Patient: Total time spent is greater than 50% in coordination of care (as documented) at patient's floor/unit and/or counseling patient: Coding Level of Care Code 80522 Subseq Hosp Care Lvl 1 Diagnoses Neutropenic fever D70.9; R50.81 Squamous cell carcinoma of neck C44.42
[2019-11-16] MEDS: POTASSIUM CHLORIDE 20 MEQ/15 ML UDC PEG SCH ×2 (12:10→21:41)
[2019-11-16] MEDS: FILGRASTIM 300 MCG/ML VIAL SQ SCH (12:33)
[2019-11-16] MEDS: FLUCONAZOLE 100 MG/50 ML BAG IV SCH (16:20)
--- NOTE | 2019-11-16 16:57 | Ultrasound Report ---
BILATERAL LOWER EXTREMITY VENOUS DOPPLER CLINICAL HISTORY: elevated D-dimer COMPARISON STUDY: No previous studies for comparison. TECHNIQUE: Sonography of the deep venous system of the bilateral lower extremities was performed. Co mpression and augmentation were evaluated. FINDINGS: The bilateral common femoral, superficial femoral and popliteal veins were compressible. A ugmentation was normal. Flow was shown within the deep calf vessels. Note was made of mild wall thick ening of the right peroneal vein which represents chronic thrombus. IMPRESSION: 1. No evidence of acute deep venous thrombus within the bilateral lower extremities. 2. Mild wall thickening of the right peroneal vein consistent with chronic thrombus. ACT 112: Negative or not required by law. Electronically signed by: Tristan Simpson M.D. 11/16/2019 4:55 PM
[2019-11-16] MEDS: LORazepam 0.5 MG/1 ML VIAL IV PRN (18:05)
--- NOTE | 2019-11-16 20:41 | Hospitalist Progress Note ---
Date of Service November 16, 2019 Assessment & Plan (1) Neutropenic fever: Blood cultures negative so far. Temp trending downward. WBC's still low. Neupogen 300 mcg daily per Heme / Onc. (2) Malignant neoplasm of head and neck: Medical Oncology management per Dr. Hsieh. Radiation Oncology management per Dr. Carlos. (3) Anemia: Hgb day of admission was 6.5.. No overt GI bleeding. Anemia probably secondary to chemotherapy. Received 3 units pRBC's. Hgb today = 8.2. Follow. (4) Thrombocytopenia: Platelet count day of admission was 45,000. Thrombocytopenia probably due to chemotherapy. Plt count today = 51,000. Follow. (5) Elevated d-dimer: Check venous duplex lower extremities. (6) Hypokalemia: K today = 2.8. Replace. Follow. (7) Carotid artery disease: Moderate stenosis right ICA incidentally noted on CT neck. Carotid duplex recommended once pt has recovered from radiation therapy. (8) DVT prophylaxis: Anticoagulants contraindicated due to thrombocytopenia. Patient prefers not to wear SCD's. TEDS if venous duplex lower extremities negative. Ambulate as able. (9) Discharge planning issues: Anticipated discharge to home. Family Medicine follow-up with Dr. Miller. Medical Oncology follow-up with Dr. Hsieh. Radiation Oncology follow-up with Dr. Carlos. Admission and Anticipated Discharge Date Admission Date: November 14, 2019 Subjective Recheck for neutropenic fever and other problems. Patient seen in their room around 1100. visiting. Feels somewhat better. Temp trending downward. Still fatigued. Coughing due to oropharyngeal mucus. No chest pain or shortness of breath. Tolerating PEG feedings. Not ambulating much; spending most of time in bed and chair. Review of Systems: Constitutional- as noted above. Cardiac- no chest pain. Pulmonary- as noted above. GI- no nausea, vomiting, diarrhea, melena, hematochezia. - no urinary symptoms. Otherwise, as noted above. Physical Exam Constitutional: + ill appearing, + thin and + cachectic; no acute distress Eyes: + anicteric sclerae Respiratory: no respiratory distress Auscultation: lungs clear to aus cultation bilaterally Cardiovascular: Rate/Rhythm: regular rate and regular rhythm Vessels: no JVD Extremities: no calf tenderness and no edema Gastrointestinal (Abdomen): normal bowel sounds, soft, nontender, no h epatosplenomegaly Inspection/Auscultation: + abdomen abnormal to inspection (PEG) Musculoskeletal: Extremities: no cyanosis Skin: + rash (radiation changes neck, L > R) Psychiatric: Orientation: alert and oriented x 3 Results & Data ([facility]) Vital Signs (Past 12 Hours) Vital Signs Temp Pulse Resp BP Pulse Ox 11/16/19 20:21 37.4 C 106 H 22 129/75 95 11/16/19 11:59 37.6 C H 113 H 18 121/73 97 Laboratory Results 11/16/19 07:28 11/16/19 07:28 Microbiology 11/14/19 16:16 Blood Aerobic Blood Culture - Preliminary No growth in Aerobic bottle after 48 hours. 11/14/19 16:16 Blood Anaerobic Blood Culture - Preliminary No growth in Anaerobic bottle after 48 hours. 11/14/19 16:28 Blood Aerobic Blood Culture - Preliminary No growth in Aerobic bottle after 48 hours. 11/14/19 16:28 Blood Anaerobic Blood Culture - Preliminary No growth in Anaerobic bottle after 48 hours. 11/14/19 23:40 Neck Gram Stain - Final 11/14/19 23:40 Neck Wound Culture - Preliminary Kayleen albicans 11/14/19 16:58 Urine,Clean Catch Urine Culture - Final No growth - less than 1,000 colonies/mL. (1) Anemia Anemia type: bone marrow failure Bone marrow failure anemia type: pancytopenia, antineoplastic chemotherapy-induced Qualified Code(s): D61.810 - Antineoplastic chemotherapy induced pancytopenia; T45.1X5A - Adverse effect of antineoplastic and immunosuppressive drugs, initial encounter
[2019-11-16] MEDS: ZOLPIDEM TARTRATE 10 MG TAB PO SCH (21:41)
[2019-11-17] MEDS: VANCOMYCIN HCL 750 MG in SODIUM CHLORIDE 0.9% 250 ML IV SCH (06:34)
[2019-11-17 07:09] LABS: Hematocrit (blood only) 21.6 % (42-52); Hemoglobin 7.3 g/dL (14.0-18.0); Mean Corpuscular Hemoglobin 29.1 pg (25-34); Mean Corpuscular Hgb Conc 33.8 g/dL (32-36); Mean Corpuscular Volume 86.1 fL (80-100); Mean Platelet Volume 10.2 fL (7.4-10.4); Platelet Count 49 K/uL (130-400); RDW Coefficient of Variation 16.5 % (11.5-14.5); RDW Standard Deviation 50.1 fL (36.4-46.3); Red Blood Count 2.51 M/uL (4.7-6.1); White Blood Count 0.49 K/uL (4.8-10.8)
[2019-11-17 07:53] LABS: Albumin Globulin Ratio 0.4 (0.9-2); Albumin Level 1.9 gm/dl (3.4-5.0); BUN Creatinine Ratio 29.4 (10-20); Bilirubin,Total 0.7 mg/dl (0.2-1); Calcium 7.1 mg/dl (8.5-10.1); Creatinine Clr Calc Pharmacy 69.7 ml/min; Est GFR (African American) 101.2; Est GFR (Non-African American) 87.3; Globulin 4.4 gm/dl (2.5-4.0); Magnesium 1.2 mg/dl (1.8-2.4); Phosphorus 1.7 mg/dl (2.5-4.9); Total Protein 6.3 gm/dl (6.4-8.2)
[2019-11-17 08:14] LABS: Potassium 2.4 mmol/L (3.5-5.1)
[2019-11-17] MEDS: CHECK SCOPOLAMINE PATCH PLACEMENT SCH ×3 (08:35→23:54)
[2019-11-17] MEDS: FILGRASTIM 300 MCG/ML VIAL SQ SCH (08:36)
[2019-11-17] MEDS: POTASSIUM CHLORIDE 20 MEQ/15 ML UDC PEG SCH ×3 (08:36→21:12)
[2019-11-17] MEDS: POTASSIUM CHLORIDE / WTR 10 MEQ/100 ML PLCT IV SCH ×2 (09:25→10:00)
[2019-11-17] MEDS ORDERED: MAGNESIUM SULFATE / D5W 1 GM/100 ML BAG IV ONE (09:30)
--- NOTE | 2019-11-17 10:12 | Infectious Disease Progress Nt ---
Date of Service November 17, 2019 Assessment & Plan (1) Neutropenic fever: cultures negative with exception of wound culture growing yeast. will continue fluconazole for yeast on ua (culture negative) and from neck culture. can change to po/peg, would give 14 days fluconazole. (2) Squamous cell carcinoma of neck: Admission and Anticipated Discharge Date Admission Date: November 14, 2019 Subjective pt afebrile. abx stopped yesterday, blood and urine cultures negative, wound cultures growing C. albicans, remains on fluconazole, tolerating well. wbc increased to 0.49. 11/16 doppler, chronic right clot, no acute dvt noted. Results & Data ([facility]) Vital Signs (Past 12 Hours) Vital Signs Temp Pulse Resp BP Pulse Ox 11/17/19 08:11 37.7 C H 86 16 131/74 94 11/17/19 03:31 36.9 C 107 H 24 122/66 95 11/16/19 23:25 36.7 C 101 H 24 125/70 96 Laboratory Results Microbiology 11/14/19 16:16 Blood Aerobic Blood Culture - Preliminary No growth in Aerobic bottle after 48 hours. 11/14/19 16:16 Blood Anaerobic Blood Culture - Preliminary No growth in Anaerobic bottle after 48 hours. 11/14/19 16:28 Blood Aerobic Blood Culture - Preliminary No growth in Aerobic bottle after 48 hours. 11/14/19 16:28 Blood Anaerobic Blood Culture - Preliminary No growth in Anaerobic bottle after 48 hours. 11/14/19 23:40 Neck Gram Stain - Final 11/14/19 23:40 Neck Wound Culture - Preliminary Kayleen albicans 11/14/19 16:58 Urine,Clean Catch Urine Culture - Final No growth - less than 1,000 colonies/mL. PG Care Time/CCT Total # of Minutes Spent Total Time Spent with Patient: Total time spent is greater than 50% in coordination of care (as documented) at patient's floor/unit and/or counseling patient: Coding Level of Care Code 30754 Subseq Hosp Care Lvl 1 Diagnoses Neutropenic fever D70.9; R50.81 Squamous cell carcinoma of neck C44.42
[2019-11-17] MEDS ORDERED: CEFEPIME 2,000 MG in SYRINGE 7.5 ML IV SCH (10:15)
[2019-11-17] MEDS ORDERED: SODIUM CHLORIDE 0.9% 250 ML IV PRN (10:15)
[2019-11-17] MEDS ORDERED: ACETAMINOPHEN SOLN 500 MG/15.62 ML UDP PO ONE ×3 (10:45)
[2019-11-17] MEDS: CEFEPIME 2,000 MG in SYRINGE 7.5 ML IV SCH ×2 (11:05→18:28)
[2019-11-17] MEDS: FLUCONAZOLE 100 MG/50 ML BAG IV SCH (17:46)
[2019-11-17] MEDS: LORazepam 0.5 MG/1 ML VIAL IV PRN (18:27)
[2019-11-17] MEDS: ZOLPIDEM TARTRATE 10 MG TAB PO SCH (21:11)
--- NOTE | 2019-11-17 22:02 | Hospitalist Progress Note ---
Date of Service November 17, 2019 Assessment & Plan (1) Neutropenic fever: Blood cultures negative so far. Temp trending downward. WBC's still low. Vancomycin discontinued. Will continue cefepime until temp down and ANC improved. Neupogen 300 mcg daily per Heme / Onc. (2) Malignant neoplasm of head and neck: Medical Oncology management per Dr. Hsieh. Radiation Oncology management per Dr. Carlos. (3) Anemia: Hgb day of admission was 6.5.. No overt GI bleeding. Anemia probably secondary to chemotherapy. Received 3 units pRBC's. Hgb today = 7.3. Transfuse another unit of pRBC's today. Follow. (4) Thrombocytopenia: Platelet count day of admission was 45,000. Thrombocytopenia probably due to chemotherapy. Plt count today = 49,000. Follow. (5) Elevated d-dimer: Venous duplex lower extremities negative for acute DVT. (6) Hypokalemia: K today = 2.4. Replace. Follow. (7) Carotid artery disease: Moderate stenosis right ICA incidentally noted on CT neck. Carotid duplex recommended once pt has recovered from radiation therapy. (8) DVT prophylaxis: Anticoagulants contraindicated due to thrombocytopenia. Patient prefers not to wear SCD's. TEDS. Ambulate as able. (9) Discharge planning issues: Anticipated discharge to home. Family Medicine follow-up with Dr. Miller. Medical Oncology follow-up with Dr. Hsieh. Radiation Oncology follow-up with Dr. Carlos. Admission and Anticipated Discharge Date Admission Date: November 14, 2019 Subjective Recheck for neutropenic fever and other problems. Patient seen in their room around 0950. visiting. Feels somewhat better. Intermittent low grade temp. Coughing due to oropharyngeal mucus. No chest pain or shortness of breath. Tolerating PEG feedings. Spent some time out of bed in chair this morning. Review of Systems: Constitutional- as noted above. Cardiac- no chest pain. Pulmonary- as noted above. GI- no nausea, vomiting, diarrhea, melena, hematochezia. - no urinary symptoms. Otherwise, as noted above. Physical Exam Constitutional: no acute distress Eyes: + anicteric sclerae Respiratory: no respiratory distress Auscultation: lungs clear to auscultation bilaterally Cardiovascular: Rate/Rhythm: regular rate and regular rhythm Vessels: no JVD Extremities: no calf tenderness and no edema Gastrointestinal (Abdomen): normal bowel sounds, soft, nontender, no hepatosplenomegaly Inspection/Auscultation: + abdomen abnormal to inspection (PEG) Musculoskeletal: Extremities: no cyanosis Skin: + rash (radiation changes neck, L > R) Psychiatric: Orientation: alert and oriented x 3 Results & Data ([facility]) Vital Signs (Past 12 Hours) Vital Signs Temp Pulse Pulse Resp BP BP Pulse Ox 11/17/19 18:59 37.1 C 91 H 18 134/74 97 11/17/19 18:43 92 H 11/17/19 16:33 37.2 C 88 18 123/53 L 97 11/17/19 14:07 37.1 C 93 H 20 124/72 96 11/17/19 14:01 37.1 C 93 H 20 121/78 95 11/17/19 13:01 37.1 C 92 H 20 124/74 98 11/17/19 12:31 37.1 C 92 H 20 127/81 98 11/17/19 12:16 37.1 C 92 H 20 121/74 97 11/17/19 12:01 37.2 C 92 H 20 122/73 98 11/17/19 11:53 37.2 C 91 H 18 138/78 98 11/17/19 11:08 37.1 C 86 16 109/67 95 Laboratory Results Hemoglobin 7.3, white count 490, platelet count 49,000. Sodium 136, potassium 2.4, chloride 100, CO2 31, BUN 25, creatinine 0.83, random glucose 103. Magnesium 1.2. (1) Anemia Anemia type: bone marrow failure Bone marrow failure anemia type: pancytopenia, antineoplastic chemotherapy-induced Qualified Code(s): D61.810 - Antineoplastic chemotherapy induced pancytopenia; T45.1X5A - Adverse effect of antineoplastic and immunosuppressive drugs, initial encounter
[2019-11-18] MEDS: CEFEPIME 2,000 MG in SYRINGE 7.5 ML IV SCH ×3 (03:00→17:41)
[2019-11-18] MEDS ORDERED: VANCOMYCIN TROUGH ONE (07:30)
[2019-11-18 07:45] LABS: Hematocrit (blood only) 26.6 % (42-52); Mean Corpuscular Hgb Conc 33.8 g/dL (32-36); Mean Corpuscular Volume 85.8 fL (80-100); Mean Platelet Volume 10.1 fL (7.4-10.4); Platelet Count 50 K/uL (130-400); RDW Standard Deviation 48.7 fL (36.4-46.3); White Blood Count 0.77 K/uL (4.8-10.8)
[2019-11-18 08:06] LABS: Giant Platelets 1+
[2019-11-18 08:09] LABS: Eosinophils # (manual) 0.01 K/uL (0-0.5); Eosinophils % (manual) 1.1 %; Lymphocytes # (manual) 0.29 K/uL (1.2-3.4); Lymphocytes % (manual) 37.8 %; Metamyelocytes # (manual) 0.03 K/uL (0-0); Metamyelocytes % (manual) 4.4 %; Monocytes # (manual) 0.07 K/uL (0.11-0.59); Monocytes % (manual) 8.9 %; Neutrophils # (manual) 0.37 K/uL (1.4-6.5); Neutrophils % (manual) 47.8 %
[2019-11-18 08:14] LABS: BUN Creatinine Ratio 28.2 (10-20); Calcium 7.5 mg/dl (8.5-10.1); Creatinine Clr Calc Pharmacy 64.6 ml/min; Est GFR (African American) 98.8; Est GFR (Non-African American) 85.2; Magnesium 1.3 mg/dl (1.8-2.4); Potassium 2.6 mmol/L (3.5-5.1)
[2019-11-18] MEDS: POTASSIUM CHLORIDE 20 MEQ/15 ML UDC PEG SCH ×3 (08:16→21:51)
[2019-11-18 08:21] LABS: Phosphorus 1.2 mg/dl (2.5-4.9)
[2019-11-18] MEDS ORDERED: MAGNESIUM SULFATE / D5W 1 GM/100 ML BAG IV ONE ×2 (08:31→20:00)
[2019-11-18] MEDS ORDERED: POTASSIUM PHOS 3 MMOL/1 ML INFUSION IV ONE ×2 (08:31→19:23)
[2019-11-18] MEDS ORDERED: POTASSIUM PHOSPHATE 21 MMOL in SODIUM CHLORIDE 0.9% 500 ML IV ONE ×2 (08:45→20:00)
[2019-11-18] MEDS: FILGRASTIM 300 MCG/ML VIAL SQ SCH (10:06)
[2019-11-18] MEDS: CHECK SCOPOLAMINE PATCH PLACEMENT SCH ×2 (10:19→10:20)
[2019-11-18] MEDS: FLUCONAZOLE 100 MG/50 ML BAG IV SCH (16:33)
[2019-11-18] MEDS: LORazepam 0.5 MG/1 ML VIAL IV PRN (18:36)
--- NOTE | 2019-11-18 19:22 | Hospitalist Progress Note ---
Date of Service November 18, 2019 Assessment & Plan (1) Neutropenic fever: Blood cultures negative so far. Temp trending downward, but low grade temp last night. WBC's still low- total WBC 770 / ANC 370. Vancomycin discontinued. Will continue cefepime until temp down and ANC improved. Neupogen 300 mcg daily per Heme / Onc. (2) Malignant neoplasm of head and neck: Medical Oncology management per Dr. Hsieh. Radiation Oncology management per Dr. Carlos. (3) Anemia: Hgb day of admission was 6.5.. No overt GI bleeding. Anemia probably secondary to chemotherapy. Received 4 units pRBC's. Hgb today = 9.0. Follow. (4) Thrombocytopenia: Platelet count day of admission was 45,000. Thrombocytopenia probably due to chemotherapy. Plt count today = 50,000. Follow. (5) Elevated d-dimer: Venous duplex lower extremities negative for acute DVT. (6) Hypokalemia: K as low as 2.4. Hypokalemia probably due to recent cisplatin therapy. K today = 2.6. Replace. Follow. (7) Hypomagnesemia: Mg as low as 1.2. Hypomagnesemia probably due to recent cisplatin. Mg today = 1.3. Continue replacement. Follow. (8) Hypophosphatemia: Phosphorus as low as 1.2. Phos today = 1.2. Replace. Follow. (9) Carotid artery disease: Moderate stenosis right ICA incidentally noted on CT neck. Carotid duplex recommended once pt has recovered from radiation therapy. (10) DVT prophylaxis: Anticoagulants contraindicated due to thrombocytopenia. Patient prefers not to wear SCD's. TEDS. Ambulate as able. (11) Discharge planning issues: Anticipated discharge to home. Family Medicine follow-up with Dr. Miller. Medical Oncology follow-up with Dr. Hsieh. Radiation Oncology follow-up with Dr. Carlos. Admission and Anticipated Discharge Date Admission Date: November 14, 2019 Subjective Recheck for neutropenic fever and other problems. Patient seen in their room around 1810. visiting. Gradually improving. Still with intermittent low grade temp. Coughing due to oropharyngeal mucus. No chest pain or shortness of breath. Tolerating PEG feedings. Ambulating. Review of Systems: Constitutional- as noted above. Cardiac- no chest pain. Pulmonary- as noted above. GI- no nausea, vomiting, diarrhea, melena, hematochezia. - no urinary symptoms. Otherwise, as noted above. Physical Exam Constitutional: no acute distress Eyes: + anicteric sclerae Respiratory: no respiratory distress Auscultation: lungs clear to aus cultation bilaterally Cardiovascular: Rate/Rhythm: regular rate and regular rhythm Vessels: no JVD Extremities: no calf tenderness and no edema Gastrointestinal (Abdomen): normal bowel sounds, soft, nontender, no h epatosplenomegaly Inspection/Auscultation: + abdomen abnormal to inspection (PEG) Musculoskeletal: Extremities: no cyanosis Skin: + rash (radiation changes neck, L > R) Psychiatric: Orientation: alert and oriented x 3 Results & Data ([facility]) Vital Signs (Past 12 Hours) Vital Signs Temp Pulse Pulse Resp BP Pulse Ox 11/18/19 16:17 37.3 C 90 20 131/77 98 11/18/19 12:06 37.0 C 74 18 148/72 H 98 11/18/19 08:54 89 11/18/19 07:46 37.2 C 104 H 20 128/74 96 Laboratory Results 11/18/19 07:19 11/18/19 07:19 (1) Anemia Anemia type: bone marrow failure Bone marrow failure anemia type: pancytopenia, antineoplastic chemotherapy-induced Qualified Code(s): D61.810 - Antineoplastic chemotherapy induced pancytopenia; T45.1X5A - Adverse effect of antineoplastic and immunosuppressive drugs, initial encounter
[2019-11-18] MEDS: ZOLPIDEM TARTRATE 10 MG TAB PO SCH (21:51)
[2019-11-19 06:59] LABS: Hematocrit (blood only) 24.9 % (42-52); Hemoglobin 8.5 g/dL (14.0-18.0); Mean Corpuscular Hemoglobin 29.7 pg (25-34); Mean Corpuscular Hgb Conc 34.1 g/dL (32-36); Mean Corpuscular Volume 87.1 fL (80-100); Mean Platelet Volume 10.1 fL (7.4-10.4); Platelet Count 51 K/uL (130-400); RDW Standard Deviation 48.9 fL (36.4-46.3); Red Blood Count 2.86 M/uL (4.7-6.1)
[2019-11-19 07:24] LABS: BUN Creatinine Ratio 31.1 (10-20); Calcium 7.4 mg/dl (8.5-10.1); Creatinine Clr Calc Pharmacy 67.7 ml/min; Dohle Bodies 2+; Est GFR (African American) 100.7; Est GFR (Non-African American) 86.9; Magnesium 1.5 mg/dl (1.8-2.4); Phosphorus 2.5 mg/dl (2.5-4.9); Potassium 3.2 mmol/L (3.5-5.1); Toxic Granulation 3+; Toxic Vacuolation 1+
[2019-11-19 07:36] LABS: ANC (manual) 0.37 K/uL (1.4-6.5)
[2019-11-19 07:38] LABS: ANC (manual) 0.48 K/uL (1.4-6.5); Eosinophils # (manual) 0.01 K/uL (0-0.5); Eosinophils % (manual) 1.3 %; Lymphocytes # (manual) 0.25 K/uL (1.2-3.4); Lymphocytes % (manual) 27.8 %; Metamyelocytes # (manual) 0.02 K/uL (0-0); Metamyelocytes % (manual) 2.5 %; Monocytes # (manual) 0.13 K/uL (0.11-0.59); Monocytes % (manual) 13.9 %; Myelocytes # (manual) 0.01 K/uL (0-0); Myelocytes % (manual) 1.3 %; Neutrophils # (manual) 0.48 K/uL (1.4-6.5); Neutrophils % (manual) 53.2 %
[2019-11-19] MEDS: POTASSIUM CHLORIDE 20 MEQ/15 ML UDC PEG SCH ×3 (08:17→21:22)
[2019-11-19] MEDS: FILGRASTIM 300 MCG/ML VIAL SQ SCH (08:22)
[2019-11-19] MEDS: FLUCONAZOLE 100 MG/50 ML BAG IV SCH (17:20)
[2019-11-19] MEDS: HEPARIN 100 UNIT/ML 5ML FLUSH FLUSH PRN (18:20)
[2019-11-19] MEDS: LORazepam 0.5 MG/1 ML VIAL IV PRN (18:20)
--- NOTE | 2019-11-19 21:13 | Hospitalist Progress Note ---
Date of Service November 19, 2019 Assessment & Plan (1) Neutropenic fever: Blood cultures negative so far. Temp trending downward, but low grade temp again last night. WBC's still low- total WBC 900 / ANC 480. Vancomycin discontinued. Will continue cefepime until temp down and ANC improved. Neupogen 300 mcg daily per Heme / Onc. (2) Malignant neoplasm of head and neck: Medical Oncology management per Dr. Hsieh. Radiation Oncology management per Dr. Carlos. (3) Anemia: Hgb day of admission was 6.5.. No overt GI bleeding. Anemia probably secondary to chemotherapy. Received 4 units pRBC's. Hgb today = 8.5. Follow. (4) Thrombocytopenia: Platelet count day of admission was 45,000. Thrombocytopenia probably due to chemotherapy. Plt count today = 51,000. Follow. (5) Elevated d-dimer: Venous duplex lower extremities negative for acute DVT. (6) Hypokalemia: K as low as 2.4. Hypokalemia probably due to recent cisplatin therapy. K today = 3.2. Replace. Follow. (7) Hypomagnesemia: Mg as low as 1.2. Hypomagnesemia probably due to recent cisplatin. Mg today = 1.5. Continue replacement. Follow. (8) Hypophosphatemia: Phosphorus as low as 1.2. Phos today = 2.5 Replace. Follow. (9) Carotid artery disease: Moderate stenosis right ICA incidentally noted on CT neck. Carotid duplex recommended once pt has recovered from radiation therapy. (10) DVT prophylaxis: Anticoagulants contraindicated due to thrombocytopenia. Patient prefers not to wear SCD's. TEDS. Ambulate as able. (11) Discharge planning issues: Anticipated discharge to home. Family Medicine follow-up with Dr. Miller. Medical Oncology follow-up with Dr. Hsieh. Radiation Oncology follow-up with Dr. Carlos. Admission and Anticipated Discharge Date Admission Date: November 14, 2019 Subjective Recheck for neutropenic fever and other problems. Patient seen in their room around 1410. visiting. Feels a little better. Low grade temp last night. Ongoing coughing due to oropharyngeal mucus. No chest pain or shortness of breath. Tolerating PEG feedings. Review of Systems: Constitutional- as noted above. Cardiac- no chest pain. Pulmonary- as noted above. GI- no nausea, vomiting, diarrhea, melena, hematochezia. - no urinary symptoms. Otherwise, as noted above. Physical Exam Constitutional: no acute distress Eyes: + anicteric sclerae Respiratory: no respiratory distress Auscultation: lungs clear to auscultation bilaterally Cardiovascular: Rate/Rhythm: regular rate and regular rhythm Vessels: no JVD Extremities: no calf tenderness and no edema Gastrointestinal (Abdomen): normal bowel sounds, soft, nontender, no hepatosplenomegaly Inspection/Auscultation: + abdomen abnormal to inspection (PEG) Musculoskeletal: Extremities: no cyanosis Skin: + rash (radiation changes neck, L > R) Psychiatric: Orientation: alert and oriented x 3 Results & Data ([facility]) Vital Signs (Past 12 Hours) Vital Signs Temp Pulse Pulse Resp BP Pulse Ox 11/19/19 19:50 37.0 C 81 18 118/63 98 11/19/19 15:55 36.6 C 63 18 120/68 99 11/19/19 12:00 82 11/19/19 11:37 37.1 C 83 20 110/62 98 Laboratory Results 11/19/19 06:20 11/19/19 06:20 (1) Anemia Anemia type: bone marrow failure Bone marrow failure anemia type: pancyto penia, antineoplastic chemotherapy-induced Qualified Code(s): D61.810 - Antineoplastic chemotherapy induced pancytopenia; T45.1X5A - Adverse effect of antineoplastic and immunosuppressive drugs, initial encounter
[2019-11-19] MEDS: MAGNESIUM OXIDE 400 MG TAB PEG SCH (21:21)
[2019-11-19] MEDS: ZOLPIDEM TARTRATE 10 MG TAB PO SCH (21:21)
[2019-11-19] MEDS: POT PHOSPHATE MONOBASIC W/ SOD TAB PEG SCH (21:21)
[2019-11-20 06:30] LABS: Hematocrit (blood only) 25.5 % (42-52); Hemoglobin 8.7 g/dL (14.0-18.0); Mean Corpuscular Hemoglobin 29.7 pg (25-34); Mean Corpuscular Hgb Conc 34.1 g/dL (32-36); RDW Coefficient of Variation 15.9 % (11.5-14.5); RDW Standard Deviation 49.2 fL (36.4-46.3); Red Blood Count 2.93 M/uL (4.7-6.1); White Blood Count 1.34 K/uL (4.8-10.8)
[2019-11-20 06:31] LABS: Mean Platelet Volume 9.9 fL (7.4-10.4); Platelet Count 56 K/uL (130-400)
[2019-11-20 07:05] LABS: BUN Creatinine Ratio 35.5 (10-20); Calcium 7.6 mg/dl (8.5-10.1); Creatinine Clr Calc Pharmacy 70.4 ml/min; Est GFR (African American) 102.2; Est GFR (Non-African American) 88.2; Magnesium 1.4 mg/dl (1.8-2.4); Phosphorus 1.8 mg/dl (2.5-4.9)
[2019-11-20 07:06] LABS: Dohle Bodies 1+; Toxic Granulation 2+; Toxic Vacuolation 1+
[2019-11-20 07:14] LABS: ANC (manual) 0.84 K/uL (1.4-6.5); Lymphocytes # (manual) 0.36 K/uL (1.2-3.4); Lymphocytes % (manual) 27.2 %; Metamyelocytes # (manual) 0.04 K/uL (0-0); Metamyelocytes % (manual) 3.3 %; Monocytes # (manual) 0.04 K/uL (0.11-0.59); Monocytes % (manual) 3.3 %; Myelocytes # (manual) 0.04 K/uL (0-0); Myelocytes % (manual) 3.3 %; Neutrophils # (manual) 0.84 K/uL (1.4-6.5); Neutrophils % (manual) 62.9 %
[2019-11-20] MEDS: POTASSIUM CHLORIDE 20 MEQ/15 ML UDC PEG SCH (08:09)
[2019-11-20] MEDS: POT PHOSPHATE MONOBASIC W/ SOD TAB PEG SCH (08:09)
[2019-11-20] MEDS: MAGNESIUM OXIDE 400 MG TAB PEG SCH (08:09)
[2019-11-20] MEDS: FILGRASTIM 300 MCG/ML VIAL SQ SCH (08:10)
[2019-11-20 11:28] VITALS: BP 128/73; PULSE 92; TEMP 99; O2SAT 94
[2019-11-20] MEDS: HEPARIN 100 UNIT/ML 5ML FLUSH FLUSH PRN (12:07)
--- NOTE | 2019-11-20 12:26 | Hospitalist Progress Note ---
Date of Service November 20, 2019 Assessment & Plan (1) Neutropenic fever: Presented with fever, malaise, neutropenia from chemotherapy. Total WBC at time of admission was 280. Received empiric antibiotic therapy with IV vancomycin and cefepime. Neupogen 300 mcg daily per Heme / Onc. Blood cultures negative so far. Temps have trended downward. Clinically improved. Total WBC today 1340 with ANC of 840. DC antibiotics and Neupogen. (2) Malignant neoplasm of head and neck: Medical Oncology management per Dr. Hsieh. Radiation Oncology management per Dr. Carlos. (3) Anemia: Hgb day of admission was 6.5.. No overt GI bleeding. Anemia probably secondary to chemotherapy. Received 4 units pRBC's. Hgb today = 8.7. Follow. (4) Thrombocytopenia: Platelet count day of admission was 45,000. Thrombocytopenia probably due to chemotherapy. Plt count today = 56,000. Follow. (5) Elevated d-dimer: Venous duplex lower extremities negative for acute DVT. (6) Hypokalemia: K as low as 2.4. Hypokalemia probably due to recent cisplatin therapy. K today = 4.0. Discharge on KCl 20 mEq TID via PEG + Na/K phos. Follow. (7) Hypomagnesemia: Mg as low as 1.2. Hypomagnesemia probably due to recent cisplatin. Mg today = 1.4. Continue replacement with Mg Oxide 400 TID via PEG. Follow. (8) Hypophosphatemia: Phosphorus as low as 1.2. Phos today = 1.8. Replace with Na/K phos 1 packet via PEG TID. Follow. (9) Carotid artery disease: Moderate stenosis right ICA incidentally noted on CT neck. Carotid duplex recommended once pt has recovered from radiation therapy. (10) DVT prophylaxis: Anticoagulants contraindicated due to thrombocytopenia. Patient prefers not to wear SCD's. TEDS. Ambulating. (11) Discharge planning issues: Discharge to home. Family Medicine follow-up with Dr. Miller. Medical Oncology follow-up with Dr. Hsieh. Radiation Oncology follow-up with Dr. Carlos. Nephrology follow-up with Dr. Johnson. Admission and Anticipated Discharge Date Admission Date: November 14, 2019 Subjective Recheck for neutropenic fever and other problems. Patient seen in their room around 1200. visiting. Feels better. Still has intermittent low grade temps, but patient and spouse indicate that this is not unusual for him. Ongoing coughing due to oropharyngeal mucus. No chest pain or shortness of breath. Tolerating PEG feedings. Ambulating. Would like to go home. Review of Systems: Constitutional- as noted above. Cardiac- no chest pain. Pulmonary- as noted above. GI- no nausea, vomiting, diarrhea, melena, hematochezia. - no urinary symptoms. Otherwise, as noted above. Physical Exam Constitutional: no acute distress Eyes: + anicteric sclerae Respiratory: no respiratory distress Auscultation: lungs clear to auscultation bilaterally Cardiovascular: Rate/Rhythm: regular rate and regular rhythm Vessels: no JVD Extremities: no calf tenderness and no edema Gastrointestinal (Abdomen): normal bowel sounds, soft, nontender, no hepatosplenomegaly Inspection/Auscultation: + abdomen abnormal to inspection (PEG) Musculoskeletal: Extremities: no cyanosis Skin: + rash (radiation changes neck, L > R) Psychiatric: Orientation: alert and oriented x 3 Results & Data ([facility]) Vital Signs (Past 12 Hours) Vital Signs Temp Pulse Resp BP Pulse Ox 11/20/19 11:23 37.2 C 92 H 16 128/73 94 11/20/19 07:10 37.3 C 87 17 124/69 98 11/20/19 03:54 37.5 C 100 H 18 122/69 96 Laboratory Results Laboratory Results - last 24 hr 11/20/19 11/20/19 06:09 06:09 WBC 1.34 L RBC 2.93 L Hgb 8.7 L Hct 25.5 L MCV 87.0 MCH 29.7 MCHC 34.1 RDW Std Deviation 49.2 H RDW Coeff of Misa 15.9 H Plt Count 56 L MPV 9.9 Neutrophils % (Manual) 62.9 Lymphocytes % (Manual) 27.2 Monocytes % (Manual) 3.3 Metamyelocytes % (Man) 3.3 Myelocytes % (Man) 3.3 Neutrophils # (Manual) 0.84 L Total Absolute Neuts 0.84 L* Lymphocytes # (Manual) 0.36 L Monocytes # (Manual) 0.04 L Metamyelocytes # (Man) 0.04 H Myelocytes # (Manual) 0.04 H Toxic Granulation 2+ Toxic Vacuolation 1+ Dohle Bodies 1+ Sodium 141 Potassium 4.0 D Chloride 105 Carbon Dioxide 31 Anion Gap 5.0 BUN 29 H Creatinine 0.81 Est Cr Clr Drug Dosing 70.4 Est GFR ( Amer) 102.2 Est GFR (Non-Af Amer) 88.2 BUN/Creatinine Ratio 35.5 H Glucose 97 Calcium 7.6 L Phosphorus 1.8 L Magnesium 1.4 L Microbiology 11/14/19 16:16 Blood Aerobic Blood Culture - Final No growth in Aerobic bottle after 5 days. 11/14/19 16:16 Blood Anaerobic Blood Culture - Final No growth in Anaerobic bottle after 5 days. 11/14/19 16:28 Blood Aerobic Blood Culture - Final No growth in Aerobic bottle after 5 days. 11/14/19 16:28 Blood Anaerobic Blood Culture - Final No growth in Anaerobic bottle after 5 days. 11/14/19 23:40 Neck Gram Stain - Final 11/14/19 23:40 Neck Wound Culture - Final Kayleen albicans 11/14/19 16:58 Urine,Clean Catch Urine Culture - Final No growth - less than 1,000 colonies/mL. (1) Anemia Anemia type: bone marrow failure Bone marrow failure anemia type: pancytopenia, antineoplastic chemotherapy-induced Qualified Code(s): D61.810 - Antineoplastic chemotherapy induced pancytopenia; T45.1X5A - Adverse effect of antineoplastic and immunosuppressive drugs, initial encounter
--- NOTE | 2019-11-21 04:56 | Discharge Summary ---
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 The patient was diagnosed with head and neck cancer last year and was started on chemoradiation. He finishes radiation a while ago and had last dose of chemotherapy (cisplatin) on 11/03/2019. For the past 2 to 3 days he had been having fever as high as 102 F. He denied any chest pain or shortness of breath. He denied any runny nose or sore throat. He denied any cough. He denied any abdominal pain, diarrhea or constipation. He is n.p.o. because of the head and neck cancer and is dependent on a tube feeds for his nutrition. He denied any recent weight loss. He has some chronic skin changes and some chronic drainage from the left side of his neck because of radiation treatment. He denied any pain or tenderness in his neck. He denied any urinary symptoms. In the ER he was febrile up to 38.8 C and his white blood cell count was 0.28. He was given vancomycin and cefepime and admission to medicine was requested. The patient stated that he applied Silvadene about a week ago to his neck which caused some rash on all of his body. Most of the rash has disappeared but there is some on his arms that has still persisted. He denies any sick contacts. Principal Diagnosis neutropenic fever secondary to chemotherapy OTHER ACUTE / NEW DIAGNOSES anemia thrombocytopenia hypokalemia hypomagnesemia hypophosphatemia carotid artery stenosis Discharge Data Allergies Allergy/AdvReac Type Severity Reaction Status Date / Time silver sulfadiazine Allergy Rash Verified 11/14/19 17:32 [From Silvadene] Consultations 11/14/19 17:35 ED Decision to Admit Stat 11/14/19 22:18 Consult Infectious Diseases Routine 11/14/19 22:35 Consult Case Management - Discharge Planning Routine Ordered Studies 11/15/19 09:32 CT soft tissue neck w con Routine 11/16/19 15:30 US venous doppler LE Routine Hospital Course (1) Neutropenic fever: Presented with fever, malaise, neutropenia from chemotherapy. Total WBC at time of admission was 280. Received empiric antibiotic therapy with IV vancomycin and cefepime. Neupogen 300 mcg daily per Heme / Onc. Blood cultures negative so far. Temps have trended downward. Clinically improved. Total WBC day of discharge 1340 with ANC of 840. DC antibiotics and Neupogen. (2) Malignant neoplasm of head and neck: Medical Oncology management per Dr. Hsieh. Radiation Oncology management per Dr. Carlos. (3) Anemia: Hgb day of admission was 6.5.. No overt GI bleeding. Anemia probably secondary to chemotherapy. Received 4 units pRBC's. Hgb day of discharge 8.7. Follow. (4) Thrombocytopenia: Platelet count day of admission was 45,000. Thrombocytopenia probably due to chemotherapy. Plt count day of discharge 56,000. Follow. (5) Elevated d-dimer: Venous duplex lower extremities negative for acute DVT. (6) Hypokalemia: K as low as 2.4. Hypokalemia probably due to recent cisplatin therapy. K day of discharge 4.0. Discharge on KCl 20 mEq TID via PEG + Na/K phos. Follow. (7) Hypomagnesemia: Mg as low as 1.2. Hypomagnesemia probably due to recent cisplatin. Mg day of discharge 1.4. Continue replacement with Mg Oxide 400 TID via PEG. Follow. (8) Hypophosphatemia: Phosphorus as low as 1.2. Phos day of discharge 1.8. Replace with Na/K phos 1 packet via PEG TID. Follow. (9) Carotid artery disease: Moderate stenosis right ICA incidentally noted on CT neck. Carotid duplex recommended once pt has recovered from radiation therapy. (10) DVT prophylaxis: Anticoagulants contraindicated due to thrombocytopenia. Patient prefers not to wear SCD's. TEDS. Ambulating. (11) Discharge planning issues: Discharged to home. Family Medicine follow-up with Dr. Miller. Medical Oncology follow-up with Dr. Hsieh. Radiation Oncology follow-up with Dr. Carlos. Nephrology follow-up with Dr. Johnson. Total Time Total Time Spent Total Time Spent (In Minutes): 45 Discharge Plan Discharge Items Patient Disposition: Home - Self-Care Reason For Visit: NEUTROPENIC FEVER Discharge Diagnosis: neutropenic fever hypokalemia hypomagnesemia hypophosphatemia Condition on Discharge: Fair Activity: As commented below Activity Comment: Gradually increase activity as tolerated. Non-emergency contact: Primary Care Provider, Hospitalist, Health And Wellness Coordinator and Oncologist Call non-emergency contact if: you have any medication questions, your symptoms worsen and your temperature is above 101 Follow-up/Referrals: Todd Miller MD [Primary Care Provider] - 11/24/19 10:40 am (11/24/2019 10:40 AM Todd Miller MD) William Hsieh MD [Hospitalist] - 12/19/19 3:15 pm (12/19/2019 3:15 PMProvider William Hsieh MD) Diet: Full liquid Diet Comment: continue supplements through PEG tube as before Addtl Attending Provider Instructions: MEDICATION CHANGES: potassium chloride powder increase dose to 20mEq via PEG 3 times a day sodium / potassium phosphate 1 packet via PEG 3 times day magnesium oxide 400 mg 3 times a day via PEG, crush & flush SUMMARY OF TEST RESULTS: Blood cultures from 11/14/19 were negative. Labs day of discharge: Total white blood cell count 1340 Absolute neutrophil count 840 Hemoglobin 8.7 Platelets 56,000 Potassium 4.0 Magnesium 1.4 Phosphorus 1.8 RECOMMENDATIONS FOR FOLLOW-UP: Labs to be done on Thu11/23/19 chemistry profile magnesium phosphorus CBC with diff OTHER INSTRUCTIONS: Seek medical attention if you have: * temperature above 101 * chest pain or trouble breathing * abdominal pain, nausea, vomiting * diarrhea, dark stools or bloody stools * any unanswered questions or concerns Call 911 if symptoms are severe. Please take good care of yourself. Call if you have any questions or problems. You can reach a [facility] hospitalist on duty at [facility] 24 hours a day by calling [phone]. My cell # is [phone]. Pending Studies at Discharge: No Stand-Alone Forms: My [facility], Smoking Cessation Medications and DC Order Prescriptions: New magnesium oxide 400 mg magnesium capsule 400 mg feeding tube TID Qty: 100 RF: 5 potassium, sodium phosphates [Phosphorous Supplement] 280-160-250 mg powder in packet 1 pkt feeding tube TID Qty: 100 RF: 5 potassium chloride 20 mEq packet 20 meq feeding tube TID Qty: 100 RF: 5 Continued zolpidem [Ambien] 10 mg tablet 10 mg feeding tube HS RF: 0 albuterol sulfate [ProAir HFA] 90 mcg/actuation Hfa Aerosol Inhaler 2 puff INHALATION QID PRN (Reason: Shortness Of Breath) RF: 0 acetaminophen [Tylenol Extra Strength] 500 mg Tablet 500 mg feeding tube Q6H PRN (Reason: Pain) RF: 0 Discontinued potassium chloride 20 mEq packet 20 meq feeding tube DAILY@1000 RF: 0 Discharge Orders: Discharge Order (Routine); Ordered 11/20/19 Ordered By: Flaco Chatman/Other Patient Handouts: Potassium phosphate Sodium Phosphate oral tablet, Potassium Chloride Oral powder, Phosphorus Admission Data Admit Date/Time: 11/14/19 18:04 Attending Provider: Flaco Hill Admit Provider: Sharifa Encarnacion Primary Care Provider: Todd Miller Other Providers: Sharifa Encarnacion ; Guillermo Arias ; Olinda Flaherty ; Nilda Jones Other Interventions: Discharge Summary Assessment (RN) Last Done: 11/20/19 13:20 DC Date/Time DO NOT enter until pt leaves facility: 11/20/19 13:46
== END 2019-11-20 13:46 | disposition home or self-care (01) | DRG 810 ==
LOC: ED 14:59 → SUATTDRO 18:04 → 2S 18:04

== ENCOUNTER 2020-01-08 19:33 | Inpatient (IN) ==
[2020-01-08] MEDS ORDERED: SODIUM CHLORIDE 0.9% 1000ML 1,000 ML IV ONE (20:05)
[2020-01-08] MEDS ORDERED: LACTATED RINGER'S 1,000 ML IV ONE (20:05)
[2020-01-08] MEDS ORDERED: ACETAMINOPHEN SOLN 500 MG/15.62 ML UDP PEG ONE (20:06)
[2020-01-08] MEDS ORDERED: CEFEPIME 2,000 MG/20 ML VIAL IV STA (20:28)
--- NOTE | 2020-01-08 20:33 | Emergency Department Note ---
Impression & Plan Sepsis, Anemia, Fever ED Provider Note Provider: Willie Meredith MD DATE OF SERVICE: 01/08/2020 CHIEF COMPLAINT: Fever HISTORY OF PRESENT ILLNESS: Patient is a 74-year-old gentleman history of head and neck cancer prior neutropenic fever and febrile presenting today complaining of several days of fever persistent with generalized weakness reported. Patient denies acute respiratory issues URI symptoms. Denies dysuria symptoms. Primary hydration and intake via PEG tube is unchanged. Febrile and tachycardic upon arrival. Due for Tylenol upon arrival. Denies significant pain at this time. Patient's not holding his oral secretions very well but he states this is at baseline. Review of prior medical records show extensive work-up for possible etiology of neutropenic fever and February without noted source. Patient states finished radiation at the beginning of November prior to this and last chemotherapy was in October of this year. Patient states since then he is continued to be neutropenic and anemic. States continued pruritus and neuropathic type symptoms possibly related to prior chemotherapy medications. REVIEW OF SYSTEMS: A total of 10 review of systems was obtained and negative except as stated above in the HPI. 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 PHYSICAL EXAM: GENERAL: alert and oriented in no acute distress on stretcher, patient is spitting secretions into a cup Head: normocephalic and atraumatic EYES: No icterus. Mild R eye conjunctival injection. NECK: There is fullness of the left neck with some erythematous changes and slight swelling of the lower neck without crepitus. ENT: Mucous membranes pink and moist. LUNGS: Airway patent. No retractions. Breath sounds clear HEART: Regular rate and rhythm. No chest wall tenderness ABDOMEN: Soft and non-tender, without guarding or rebound. Left upper quadrant PEG tube present. SKIN: Acyanotic, warm, dry, without rashes EXTREMITIES: Without swelling, tenderness or deformity NEUROLOGICAL: No focal deficits. No aphasia. Moving all extremities. Ambulatory. EKG: Sinus tachycardia with rate of 113 bpm. PAC noted. No PVC. No acute ST segment elevation or depression. Left axis noted. CONTINUOUS CARDIAC MONITORING: was ordered and showed a heart rate of 98 bpm in NSR Patient's hypertension was referred to the hospitalist HOSPITAL COURSE: 1957 Patient was first seen and H&P performed. 2120 Patient reassessed and updated. Patient was consented for blood. [facility] hospitalist to be contacted. Patient's laboratory studies and imaging reviewed. Differential includes Viral syndrome, otitis, pharyngitis, pneumonia, influenza, meningitis, urinary tract infection, sepsis, bacteremia, as well as other pathologies. IMPRESSION/MEDICAL DECISION MAKING: Patient presents meeting sepsis criteria. Recently neutropenic and treating his neutropenic fever at this time. Covered broadly with cefepime vancomycin. Fluid hydration ordered. Lactate and culture sent. Unsure of exact source. Recent medical records reviewed indicating admission for neutropenic fever without appointment source. Patient denies URI symptoms recent travel or other sick exposure. Lower suspicion given this for coronavirus infection. Chest x- ray and urinalysis were also ordered. Patient does appear acutely meningitic. Benign abdomen. Given Tylenol here as he is due with fever. Chest x-ray is unrevealing. Chronic anemia appears to resurfaced and transfusion ordered. NOT acutely neutropenic today. Influenza testing negative. Heart rate and fever improving with IV fluids. Electrolytes without significant abnormality. Lactate not elevated. Procalcitonin very slightly elevated. Patient denies GI bleeding symptomatology. Patient does endorse again some continued fullness left side of his neck, unsure if this could be the related infectious source. At the current time covered broadly with vancomycin and cefepime. Believe requires admission for further care. Hospitalist contacted. DIAGNOSIS: Sepsis, acute normocytic anemia, fever DISPOSITION: Hospitalist will evaluate Patient was agreeable with this plan. Discussed return precautions and advised follow up. I have personally spent 32 minutes of critical care time in the direct managemen t of this patient. This includes bedside care, interpretation of diagnostic studies, and testing, discussion with consultants, patient, and family members, and other required patient management activities. These 32 minutes is in excess of all separately billable procedures. 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 Feels Safe at Home: Yes Smoking Status: Never smoker Second Hand Exposure: No ; Hx Alcohol Use: No Hx Substance Use: No Diet Comment: Only able to eat liquids/very soft foods; caffeine: Yes (1 cup/day) during the past year weight has: remained stable Allergies Allergies Allergy/AdvReac Type Severity Reaction Status Date / Time silver sulfadiazine Allergy Rash Verified 01/08/20 20:34 [From Silvadene] Home Meds Home Medications Medication Instructions Recorded Confirmed albuterol sulfate [ProAir HFA] 2 puff INHALATION QID PRN 06/02/19 01/08/20 zolpidem 10 mg tablet 10 mg FEEDING TUBE HS tab 10/31/19 01/08/20 acetaminophen [Tylenol Extra 500 mg FEEDING TUBE Q6H PRN 11/14/19 01/08/20 Strength] Results & Data (ED) Vital Signs Vital Signs - 24 hr 01/08/20 19:46 01/08/20 21:06 01/08/20 21:09 Temperature 39.4 C H Temperature Source Oral Pulse Rate 125 H 104 H Pulse Rate from SpO2 Sensor 103 H Respiratory Rate 20 20 Blood Pressure 112/59 L 123/58 L Blood Pressure Mean 76 101 Pulse Oximetry 91 96 96 Oxygen Delivery Method Room Air Sepsis Recent Fever Within 48 Hours Yes Sepsis New/Unexplained Change in Mental Status No Sepsis Action Taken by Nursing No Action Required 01/08/20 21:11 01/08/20 21:25 01/08/20 21:30 Temperature 38.2 C H Temperature Source Oral Pulse Rate 90 93 H Pulse Rate from SpO2 Sensor 91 H 93 H Respiratory Rate 20 19 Blood Pressure 110/60 Blood Pressure Mean 82 Pulse Oximetry 97 97 Oxygen Delivery Method Sepsis Recent Fever Within 48 Hours Sepsis New/Unexplained Change in Mental Status Sepsis Action Taken by Nursing 01/08/20 22:00 01/08/20 22:30 Temperature Temperature Source Pulse Rate 88 89 Pulse Rate from SpO2 Sensor 88 89 Respiratory Rate 13 20 Blood Pressure 108/61 123/75 Blood Pressure Mean 79 87 Pulse Oximetry 97 96 Oxygen Delivery Method Sepsis Recent Fever Within 48 Hours Sepsis New/Unexplained Change in Mental Status Sepsis Action Taken by Nursing Laboratory Data Result diagrams: 01/08/20 20:38 01/08/20 20:38 Lab Results 01/08/20 01/08/20 01/08/20 Range/Units 20:38 20:38 20:38 WBC 2.88 L (4.8-10.8) K/uL RBC 2.13 L (4.7-6.1) M/uL Hgb 6.6 L* (14.0-18.0) g/dL Hct 20.4 L* (42-52) % MCV 95.8 (80-100) fL MCH 31.0 (25-34) pg MCHC 32.4 (32-36) g/dL RDW Std Deviation 75.7 H (36.4-46.3) fL RDW Coeff of Misa 21.9 H (11.5-14.5) % Plt Count 243 (130-400) K/uL MPV 9.2 (7.4-10.4) fL Immature Gran % (Auto) 2.1 % Neut % (Auto) 64.9 % Lymph % (Auto) 11.1 % Cross % (Auto) 18.8 % Eos % (Auto) 2.1 % Baso % (Auto) 1.0 % Immature Gran # (Auto) 0.06 H (0.00-0.02) K/uL Neut # (Auto) 1.87 (1.4-6.5) K/uL Lymph # (Auto) 0.32 L (1.2-3.4) K/uL Cross # (Auto) 0.54 (0.11-0.59) K/uL Eos # (Auto) 0.06 (0-0.5) K/uL Baso # (Auto) 0.03 (0-0.2) K/uL Toxic Granulation 1+ Dohle Bodies 1+ Anisocytosis Present PT 11.2 (9.0-12.0) Seconds INR 1.1 (0.9-1.1) APTT 35.0 H (21.0-31.0) Seconds PTT Ratio 1.3 Sodium 130 L (136-145) mmol/L Potassium 4.3 (3.5-5.1) mmol/L Chloride 95 L (98-107) mmol/L Carbon Dioxide 29 (21-32) mmol/L Anion Gap 6.0 (3-11) BUN 25 H (7-18) mg/dl Creatinine 0.65 (0.6-1.4) mg/dl Est Cr Clr Drug Dosing Not Reportable Est GFR ( Amer) 111.9 Est GFR (Non-Af Amer) 96.5 BUN/Creatinine Ratio 38.2 H (10-20) Glucose 145 H (70-99) mg/dl Lactate (0.4-2.0) mmol/L Calcium 8.5 (8.5-10.1) mg/dl Magnesium 1.9 (1.8-2.4) mg/dl Total Bilirubin 0.5 (0.2-1) mg/dl AST 40 H (15-37) U/L ALT 65 (12-78) U/L Alkaline Phosphatase 67 (45-117) U/L Troponin I < 0.015 (0-0.045) ng/ml Total Protein 7.5 (6.4-8.2) gm/dl Albumin 2.3 L (3.4-5.0) gm/dl Globulin 5.2 H (2.5-4.0) gm/dl Albumin/Globulin Ratio 0.4 L (0.9-2) Procalcitonin (0-0.5) ng/ml Influenza Type A (PCR) (Neg) Influenza Type B (PCR) (Neg) Blood Type Antibody Screen Crossmatch 01/08/20 01/08/20 01/08/20 Range/Units 20:38 20:38 21:00 WBC (4.8-10.8) K/uL RBC (4.7-6.1) M/uL Hgb (14.0-18.0) g/dL Hct (42-52) % MCV (80-100) fL MCH (25-34) pg MCHC (32-36) g/dL RDW Std Deviation (36.4-46.3) fL RDW Coeff of Misa (11.5-14.5) % Plt Count (130-400) K/uL MPV (7.4-10.4) fL Immature Gran % (Auto) % Neut % (Auto) % Lymph % (Auto) % Cross % (Auto) % Eos % (Auto) % Baso % (Auto) % Immature Gran # (Auto) (0.00-0.02) K/uL Neut # (Auto) (1.4-6.5) K/uL Lymph # (Auto) (1.2-3.4) K/uL Cross # (Auto) (0.11-0.59) K/uL Eos # (Auto) (0-0.5) K/uL Baso # (Auto) (0-0.2) K/uL Toxic Granulation Dohle Bodies Anisocytosis PT (9.0-12.0) Seconds INR (0.9-1.1) APTT (21.0-31.0) Seconds PTT Ratio Sodium (136-145) mmol/L Potassium (3.5-5.1) mmol/L Chloride (98-107) mmol/L Carbon Dioxide (21-32) mmol/L Anion Gap (3-11) BUN (7-18) mg/dl Creatinine (0.6-1.4) mg/dl Est Cr Clr Drug Dosing Est GFR ( Amer) Est GFR (Non-Af Amer) BUN/Creatinine Ratio (10-20) Glucose (70-99) mg/dl Lactate 1.4 (0.4-2.0) mmol/L Calcium (8.5-10.1) mg/dl Magnesium (1.8-2.4) mg/dl Total Bilirubin (0.2-1) mg/dl AST (15-37) U/L ALT (12-78) U/L Alkaline Phosphatase (45-117) U/L Troponin I (0-0.045) ng/ml Total Protein (6.4-8.2) gm/dl Albumin (3.4-5.0) gm/dl Globulin (2.5-4.0) gm/dl Albumin/Globulin Ratio (0.9-2) Procalcitonin 0.19 (0-0.5) ng/ml Influenza Type A (PCR) Neg for Influ A (Neg) Influenza Type B (PCR) Neg for Influ B (Neg) Blood Type Antibody Screen Crossmatch 01/08/20 Range/Units 21:41 WBC (4.8-10.8) K/uL RBC (4.7-6.1) M/uL Hgb (14.0-18.0) g/dL Hct (42-52) % MCV (80-100) fL MCH (25-34) pg MCHC (32-36) g/dL RDW Std Deviation (36.4-46.3) fL RDW Coeff of Misa (11.5-14.5) % Plt Count (130-400) K/uL MPV (7.4-10.4) fL Immature Gran % (Auto) % Neut % (Auto) % Lymph % (Auto) % Cross % (Auto) % Eos % (Auto) % Baso % (Auto) % Immature Gran # (Auto) (0.00-0.02) K/uL Neut # (Auto) (1.4-6.5) K/uL Lymph # (Auto) (1.2-3.4) K/uL Cross # (Auto) (0.11-0.59) K/uL Eos # (Auto) (0-0.5) K/uL Baso # (Auto) (0-0.2) K/uL Toxic Granulation Dohle Bodies Anisocytosis PT (9.0-12.0) Seconds INR (0.9-1.1) APTT (21.0-31.0) Seconds PTT Ratio Sodium (136-145) mmol/L Potassium (3.5-5.1) mmol/L Chloride (98-107) mmol/L Carbon Dioxide (21-32) mmol/L Anion Gap (3-11) BUN (7-18) mg/dl Creatinine (0.6-1.4) mg/dl Est Cr Clr Drug Dosing Est GFR ( Amer) Est GFR (Non-Af Amer) BUN/Creatinine Ratio (10-20) Glucose (70-99) mg/dl Lactate (0.4-2.0) mmol/L Calcium (8.5-10.1) mg/dl Magnesium (1.8-2.4) mg/dl Total Bilirubin (0.2-1) mg/dl AST (15-37) U/L ALT (12-78) U/L Alkaline Phosphatase (45-117) U/L Troponin I (0-0.045) ng/ml Total Protein (6.4-8.2) gm/dl Albumin (3.4-5.0) gm/dl Globulin (2.5-4.0) gm/dl Albumin/Globulin Ratio (0.9-2) Procalcitonin (0-0.5) ng/ml Influenza Type A (PCR) (Neg) Influenza Type B (PCR) (Neg) Blood Type O Negative Antibody Screen NEGATIVE Crossmatch See Detail Administered Medications Vancomycin HCl 1,250 mg/ (Sodium Chloride) 525 mls @ 200 mls/hr IV NOW ONE Stop: 04/06/20 00:05 Last Admin: 01/08/20 22:43 Dose: 200 mls/hr Documented by: [id number] Discontinued Medications Acetaminophen (Tylenol Soln) 1,000 mg PEG ONE ONE Stop: 01/08/20 20:07 Last Admin: 01/08/20 21:02 Dose: 1,000 mg Documented by: [id number] Sodium Chloride (Nss 1000ml) 1,000 mls @ 999 mls/hr IV .Q1H1M ONE Stop: 01/08/20 21:05 Last Infusion: 01/08/20 22:49 Dose: 0 mls/hr Documented by: [id number] Admin: 01/08/20 21:02 Dose: 999 mls/hr Documented by: [id number] Lactated Ringer's (Lr) 1,000 mls @ 999 mls/hr IV .Q1H1M ONE Stop: 01/08/20 21:05 Last Infusion: 01/08/20 22:49 Dose: 0 mls/hr Documented by: [id number] Admin: 01/08/20 21:03 Dose: 999 mls/hr Documented by: [id number] Cefepime HCl (Maxipime) 2,000 mg in 20 mls @ 5 mls/min IV NOW STA; Protocol Stop: 01/08/20 20:31 Last Admin: 01/08/20 21:27 Dose: 5 mls/min Documented by: [id number] Discharge Plan Visit Data Chief Complaint: Fever Stated Complaint: FEVER 102, CANCER PT ED Provider: Willie Meredith Discharge Problem: Sepsis, Anemia, Fever Patient Disposition: Admitted As Inpatient Condition: Fair Prescriptions Prescriptions: No Action zolpidem [Ambien] 10 mg tablet 10 mg feeding tube HS RF: 0 albuterol sulfate [ProAir HFA] 90 mcg/actuation Hfa Aerosol Inhaler 2 puff INHALATION QID PRN (Reason: Shortness Of Breath) RF: 0 acetaminophen [Tylenol Extra Strength] 500 mg Tablet 500 mg feeding tube Q6H PRN (Reason: Pain) RF: 0 Referrals Referrals: Todd Miller MD [Primary Care Provider] - Discharge Problem: Sepsis Qualifiers: Sepsis type: sepsis due to unspecified organism Sepsis acute organ dysfunction status: without acute organ dysfunction Qualified Code(s): A41.9 - Sepsis, unspecified organism Anemia Qualifiers: Anemia type: unspecified type Qualified Code(s): D64.9 - Anemia, unspecified Fever Qualifiers: Fever type: unspecified Qualified Code(s): R50.9 - Fever, unspecified
[2020-01-08 21:02] LABS: INR 1.1 (0.9-1.1); Partial Thromboplastin Ratio 1.3; Prothrombin Time 11.2 Seconds (9.0-12.0)
[2020-01-08 21:05] LABS: Alanine Aminotransferase 65 U/L (12-78); Albumin Level 2.3 gm/dl (3.4-5.0); Aspartate Aminotransferase 40 U/L (15-37); BUN Creatinine Ratio 38.2 (10-20); Blood Urea Nitrogen 25 mg/dl (7-18); Calcium 8.5 mg/dl (8.5-10.1); Carbon Dioxide 29 mmol/L (21-32); Chloride 95 mmol/L (98-107); Est GFR (African American) 111.9; Est GFR (Non-African American) 96.5; Glucose 145 mg/dl (70-99); Magnesium 1.9 mg/dl (1.8-2.4); Potassium 4.3 mmol/L (3.5-5.1); Sodium 130 mmol/L (136-145)
[2020-01-08 21:10] LABS: Albumin Globulin Ratio 0.4 (0.9-2); Alkaline Phosphatase 67 U/L (45-117); Bilirubin,Total 0.5 mg/dl (0.2-1); Globulin 5.2 gm/dl (2.5-4.0); Total Protein 7.5 gm/dl (6.4-8.2); Troponin I < 0.015 ng/ml (0-0.045)
--- NOTE | 2020-01-08 21:11 | XRay Report ---
XR chest 1V portable CLINICAL HISTORY: SEPSIS COMPARISON STUDY: PET/CT August 24, 2019. Chest radiograph November 14, 2019. FINDINGS: Lung volumes are normal. Minimal linear left basilar opacity represents atelectasis. There is no pneumothorax or pleural effusion. Cardiac size is normal. Mediastinal contours are normal. Ther e is no evidence for pulmonary edema. Right-sided [id number] remains in place. An old right sixth rib fracture is noted. IMPRESSION: No acute cardiopulmonary findings. ACT 112: Negative or not required by law. Electronically signed by: Tristan Simpson M.D. 01/08/2020 9:10 PM
[2020-01-08 21:16] LABS: Hematocrit (blood only) 20.4 % (42-52); Hemoglobin 6.6 g/dL (14.0-18.0); Mean Corpuscular Hgb Conc 32.4 g/dL (32-36); Mean Corpuscular Volume 95.8 fL (80-100); Mean Platelet Volume 9.2 fL (7.4-10.4); Platelet Count 243 K/uL (130-400); RDW Coefficient of Variation 21.9 % (11.5-14.5); RDW Standard Deviation 75.7 fL (36.4-46.3); Red Blood Count 2.13 M/uL (4.7-6.1); White Blood Count 2.88 K/uL (4.8-10.8)
[2020-01-08] MEDS ORDERED: SODIUM CHLORIDE 0.9% 250 ML IV PRN (21:17)
[2020-01-08] MEDS ORDERED: VANCOMYCIN CONSULT ACTIVE PRN (21:28)
[2020-01-08] MEDS ORDERED: VANCOMYCIN HCL 1,250 MG in SODIUM CHLORIDE 0.9% 500 ML IV ONE (21:28)
[2020-01-08 21:43] LABS: Anisocytosis Present; Basophils # (auto) 0.03 K/uL (0-0.2); Dohle Bodies 1+; Eosinophils # (auto) 0.06 K/uL (0-0.5); Eosinophils % (auto) 2.1 %; Immature Granulocytes # (auto) 0.06 K/uL (0.00-0.02); Immature Granulocytes % (auto) 2.1 %; Lymphocytes # (auto) 0.32 K/uL (1.2-3.4); Lymphocytes % (auto) 11.1 %; Monocytes # (auto) 0.54 K/uL (0.11-0.59); Monocytes % (auto) 18.8 %; Neutrophils # (auto) 1.87 K/uL (1.4-6.5); Neutrophils % (auto) 64.9 %; Toxic Granulation 1+
[2020-01-08 21:43] LABS: Influenza A virus by PCR Neg for Influ A (Neg); Influenza B virus by PCR Neg for Influ B (Neg)
[2020-01-09] MEDS ORDERED: NITROGLYCERIN SL 0.4 MG/TAB TAB SL PRN (00:14)
[2020-01-09] MEDS ORDERED: ZOLPIDEM TARTRATE 10 MG TAB PO STA (00:14)
[2020-01-09] MEDS ORDERED: SODIUM CHLORIDE 0.9% 250 ML IV PRN ×3 (00:14→13:56)
[2020-01-09] MEDS ORDERED: ONDANSETRON INJ 2 MG/ML 2 ML VIAL IV PRN (00:14)
[2020-01-09] MEDS ORDERED: ACETAMINOPHEN 500 MG TAB PO PRN (00:14)
[2020-01-09] MEDS ORDERED: VANCOMYCIN CONSULT ACTIVE PRN (00:14)
[2020-01-09] MEDS ORDERED: VANCOMYCIN HCL 1,000 MG in SODIUM CHLORIDE 0.9% 250 ML IV SCH ×2 (00:14→08:30)
[2020-01-09] MEDS ORDERED: POLYETHYLENE (MIRALAX) 17 GM PACK PO PRN (00:14)
--- NOTE | 2020-01-09 00:33 | History and Physical Report ---
DATE OF ADMISSION: 01/08/2020 CHIEF COMPLAINT: Fever. 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 Presents with fever since last few days. The patient was here in November with high fever. At that time, he was treated for neutropenic fever, cultures were negative, and he was also given Neupogen at that time. He did fine and he got discharged and he also received 4 units of PRBCs last admission for anemia. The patient since last 4 days he is having high fevers, today it was 103 degrees, which prompted him to come to the ER. Denies any cough, no shortness of breath, no chest pain, no nausea, no vomiting, no abdominal pain, no headaches, no blurred vision, no earache, no runny nose, no sore throat. He does not take anything orally. He is on tube feeds. In the left side of his neck, he has chronic mild drainage from his cancer, .No rash. Says has pruritus since last admission in the hospital. Ambulates okay. Lives with his . Currently resting comfortably and hemodynamically stable. ALLERGIES: No known drug allergies. PAST MEDICAL HISTORY: As mentioned above. PAST SURGICAL HISTORY: Colonoscopy with biopsy, colonoscopy with polyp removal, EGDs, needle punch biopsy of the prostrate, adenoidectomy, tonsillectomy, repair of the nasal septum, inguinal hernia repair. MEDICATIONS: The patient is on Tylenol Extra Strength 500 mg feeding tube q. 6 hours p.r.n., ProAir 2 puffs inhalation q.i.d. p.r.n., zolpidem 10 mg p.o. at bedtime. FAMILY HISTORY: Significant for mother had asthma, endometrial and cervical and skin cancer; father had Parkinson's; sister has asthma and breast cancer; another sister, colon cancer; brother has COPD; uncle has colon cancer; another uncle of CA. SOCIAL HISTORY: . No smoking. Used to abuse alcohol in the past, currently not, no drug use. REVIEW OF SYSTEMS: As per HPI. Rest of the review of systems negative. PHYSICAL EXAMINATION: GENERAL: The patient is of moderate build, not in acute distress. VITAL SIGNS: Temperature 38.2, pulse 89, respiratory rate 20, blood pressure 123/75, oxygen 96% on room air. HEENT: No pallor, no icterus. Pupils equal, round, and reactive to light. NECK: Supple. Dressing seen on the left side of the neck. CARDIOVASCULAR: S1, S2 heard, regular rate and rhythm, no murmur, no gallop. RESPIRATORY SYSTEM: Normal AP diameter. No accessory muscle use. No wheezing, no crackles. ABDOMEN: Soft, bowel sounds present, nontender. No distention. CENTRAL NERVOUS SYSTEM: Alert and oriented. Speech is clear. Obeys simple commands. Moves extremities. EXTREMITIES: No edema, no erythema. LABORATORY DATA: WBC 2.8, hemoglobin 6.6, hematocrit 20.4, platelets 243. PT 11.2, INR 1.1, APTT 35. Sodium 130, potassium 4.3, chloride 95, bicarbonate 29, BUN 25, creatinine 0.65, serum glucose 145, lactate 1.4, calcium 8.5, magnesium 1.9, total bilirubin 0.5, AST 40, ALT 65, alkaline phosphatase 67. Troponin I less than 0.015. Procalcitonin 0.1. Influenza A and B negative. IMAGING DATA: Chest x-ray, no acute cardiopulmonary findings. EKG: Sinus tachycardia with PACs at the rate of 113. No acute ST changes seen. ASSESSMENT AND PLAN: This is a 74-year-old male who presents with fever. 1. History of neutropenic fever. Today, his white count is around 2800. No obvious source of infection. Last time cultures were negative. Will be empirically starting on IV cefepime and IV vancomycin. IV fluids. Follow the cultures. Closely monitor in the med/surg tele. Currently hemodynamically stable. 2. Anemia, most likely secondary to cancer and chemo. His last chemo was in October. Last admission, he got 4 units of PRBCs. He is getting PRBCs transfused currently ordered by ER. We will follow his labs tomorrow and if required we will give more transfusions. 3. Malignant neoplasm of hypopharynx, status post chemoradiation. Follows with hematology/oncology. 4. History of hypertension, currently not on any medications. 5. History of benign prostatic hypertrophy, currently not on any medications. 6. Deep vein thrombosis prophylaxis, sequential compression devices. 7. Disposition: Closely monitor in the med/surg tele. Level I full code as per my discussion with the patient. PT and OT prior to discharge. Social service to help with discharge planning. VANESSA
[2020-01-09] MEDS ORDERED: ALBUTEROL HFA 8 GM INHALER INH PRN (00:41)
[2020-01-09 00:42] LABS: Appearance Urine Clear (Clear); Bilirubin Urine Negative (Negative); Blood Urine Negative (Negative); Color Urine Yellow; Glucose Urine UA Negative (Negative); Ketones Urine Negative (Negative); Leukocyte Esterase Urine Negative (Negative); Nitrite Urine Negative (Negative); Protein Urine Negative (Negative); Specific Gravity Urine 1.011 (1.000-1.030); Urobilinogen Urine Negative (Negative); pH Urine 6.5 (4.5-7.5)
[2020-01-09] MEDS ORDERED: CEFEPIME CONSULT ACTIVE PRN (00:42)
[2020-01-09] MEDS ORDERED: LORazepam 0.25 MG/0.5 ML VIAL IV STA (00:42)
[2020-01-09] MEDS: SODIUM CHLORIDE 0.9% 1000ML 1,000 ML IV SCH ×3 (01:24→21:01)
[2020-01-09] MEDS ORDERED: HEPARIN 100 UNIT/ML 5ML FLUSH FLUSH PRN (01:44)
[2020-01-09 05:20] LABS: Hematocrit (blood only) 22.3 % (42-52); Hemoglobin 7.3 g/dL (14.0-18.0); Mean Corpuscular Hemoglobin 31.1 pg (25-34); Mean Corpuscular Hgb Conc 32.7 g/dL (32-36); Mean Corpuscular Volume 94.9 fL (80-100); Mean Platelet Volume 9.1 fL (7.4-10.4); Platelet Count 202 K/uL (130-400); RDW Coefficient of Variation 20.6 % (11.5-14.5); RDW Standard Deviation 70.5 fL (36.4-46.3); Red Blood Count 2.35 M/uL (4.7-6.1); White Blood Count 3.13 K/uL (4.8-10.8)
[2020-01-09 05:46] LABS: ALC (manual) 0.27 K/uL (1.2-3.4); ANC (manual) 2.21 K/uL (1.4-6.5); Anisocytosis Present; Basophils # (manual) 0.03 K/uL (0-0.2); Basophils % (manual) 0.9 %; Dohle Bodies 1+; Eosinophils # (manual) 0.13 K/uL (0-0.5); Eosinophils % (manual) 4.3 %; Lymphocytes # (manual) 0.27 K/uL (1.2-3.4); Lymphocytes % (manual) 8.6 %; Monocytes # (manual) 0.49 K/uL (0.11-0.59); Monocytes % (manual) 15.5 %; Neutrophils # (manual) 2.21 K/uL (1.4-6.5); Neutrophils % (manual) 70.7 %; Toxic Granulation 1+
[2020-01-09 05:48] LABS: BUN Creatinine Ratio 29.4 (10-20); Calcium 8.2 mg/dl (8.5-10.1); Creatinine Clr Calc Pharmacy 94.7 ml/min; Est GFR (African American) 114.8; Est GFR (Non-African American) 99.1; Magnesium 1.9 mg/dl (1.8-2.4); Phosphorus 3.3 mg/dl (2.5-4.9); Potassium 4.3 mmol/L (3.5-5.1)
[2020-01-09] MEDS ORDERED: FUROSEMIDE 10 MG in SYRINGE 0 ML IV ONE (07:01)
[2020-01-09] MEDS ORDERED: CEFEPIME 2,000 MG in SYRINGE 7.5 ML IV SCH (09:00)
--- NOTE | 2020-01-09 09:19 | Pharmacy Report ---
Pharmacy Abx Initial Consult - Date of Service January 09, 2020 - Pharmacy Dosing Scope Date of Consult: 01/08/2020 Consultation requested by: Dr. Holland Pharmacy is consulted to initiate Vancomycin and Cefepime IV dosing therapy, order appropriate labs and adjust drug dose/frequency. - Subjective The patient is a 74 year old M admitted on 01/08/20 23:00. - Objective Height: 5 ft 9 in Weight: 62.1 kg Vital Signs (Past 12hrs): Vital Signs Temp Pulse Resp BP BP Pulse Ox Pulse Ox 01/09/20 09:06 37.1 C 89 16 112/65 94 01/09/20 08:15 37.3 C 92 H 18 112/61 97 01/09/20 07:15 37.9 C H 91 H 16 109/56 L 97 01/09/20 06:45 37.6 C H 92 H 16 113/59 L 95 01/09/20 06:30 37.6 C H 96 H 16 129/64 97 01/09/20 06:12 37.2 C 92 H 16 103/49 L 96 01/09/20 03:18 102 H 01/09/20 01:49 37 C 86 16 115/67 99 01/09/20 00:44 36.9 C 16 117/69 99 99 01/09/20 00:20 36.9 C 91 H 16 117/69 99 01/09/20 00:13 36.9 C 16 117/69 99 01/08/20 23:50 36.8 C 94 H 14 120/66 98 01/08/20 23:35 36.8 C 94 H 14 120/66 98 01/08/20 23:31 88 19 97 01/08/20 23:30 36.7 C 86 15 117/63 91 01/08/20 23:25 84 13 116/65 95 01/08/20 23:20 89 21 95 01/08/20 23:17 92 H 16 123/73 97 01/08/20 23:16 37.2 C 94 H 22 123/73 94 01/08/20 23:10 93 H 16 98 01/08/20 23:01 88 12 98 01/08/20 23:00 86 14 118/66 96 01/08/20 22:50 90 18 97 01/08/20 22:30 89 20 123/75 96 01/08/20 22:00 88 13 108/61 97 01/08/20 21:30 93 H 19 110/60 97 01/08/20 21:25 38.2 C H 01/08/20 21:11 90 20 97 Lab Results (24hrs): Laboratory Tests (24 Hours) 01/09/20 01/09/20 01/08/20 05:08 05:08 20:38 WBC 3.13 L Neut # (Auto) Creatinine 0.61 Est Cr Clr Drug Dosing 94.7 Procalcitonin 0.19 01/08/20 01/08/20 20:38 20:38 WBC 2.88 L Neut # (Auto) 1.87 Creatinine 0.65 Est Cr Clr Drug Dosing Not Reportable Procalcitonin Micro Results: 01/08/20 21:11 Aerobic Blood Culture - Pending Blood Anaerobic Blood Culture - Pending 01/08/20 20:38 Aerobic Blood Culture - Pending Blood Anaerobic Blood Culture - Pending - Risk Factors for Resistance * Hospitalization for 48 hours or more within the past 90 days * 11/14-11/20 * Immunocompromised (chemotherapy + radiation) * H/o malignant neoplasm of hypopharynx * Antimicrobial use within the last 90 days: * Levofloxacin 750 mg PO daily - Assessment & Plan Assessment 74 year old M admitted secondary to febrile illness * H/o neutropenic fevers, h/o hypopharynx cancer, last chemo in October, last radiation in November * 24 hr T max 39.4 C, still febrile this AM * Cultures pending, WBCs 3.1K, Neutrophils 2.2K, PCT 0.19 (cautious interpretation secondary to malignancy) Plan IV Vancomycin + Cefepime for empiric treatment of febrile illness Vancomycin IV * Patient meets criteria for vancomycin AUC dosing nomogram * AUC/CHUY is the preferred PK/PD target for vancomycin * Target AUC/CHUY = 400-600 * AUC guided dosing is effective and associated with decreased risk of nephrotoxicity Cefepime * 2 g IV every 8 hours * Appropriate for current renal function Pharmacy will continue to follow and will adjust dose/frequency as necessary. Thank you.
[2020-01-09] MEDS ORDERED: PEPTAMEN 1.5 CAL 1,000 ML BAG PEG SCH (10:00)
[2020-01-09] MEDS ORDERED: TUBE FEEDING WATER FLUSH PEG SCH ×7 (10:00→15:00)
[2020-01-09] MEDS: ENTERAL NUTRITION FORMULA PEG SCH ×2 (10:15→12:16)
[2020-01-09] MEDS: TUBE FEEDING WATER FLUSH PEG SCH ×2 (11:25→14:57)
--- NOTE | 2020-01-09 13:14 | Infectious Disease Consult ---
Date of Consultation January 09, 2020 Assessment & Plan (1) Fever: resolved, no neutropenia, s/p transfusion. no clinical evidence of infection currently. discussed with primary, if remains stable would suggest 10 day course of emperic Augmentin. History of Present Illness Attending Physician: Nilda Jones MD pt admitted with fever at home. has h/o head and neck ca, on chemo and xrt. wbc low in Er, ANC 1870, found to have low h/h, underwent transfusion, did not have normal pretreatment with tylenol, had low grade fever 37.9 during transfusion, otherwise tolerated well. otherwise afebrile. wbc 3, creat normal, procalitonin normal. no resp symptoms noted, no gi/gu symptoms, flu swab negative, UA negative. CXR negative, was started on emperic vanco and cefepime, tolerating well. Blood cultures pending. clinically stable. Allergies Allergy/AdvReac Type Severity Reaction Status Date / Time silver sulfadiazine Allergy Rash Verified 01/08/20 20:34 [From Silvadene] Home Medications Home Medications Medication Instructions Recorded Confirmed Type albuterol sulfate [ProAir HFA] 2 puff INHALATION QID PRN 06/02/19 01/08/20 History zolpidem 10 mg tablet 10 mg FEEDING TUBE HS tab 10/31/19 01/08/20 History acetaminophen [Tylenol Extra 500 mg FEEDING TUBE Q6H PRN 11/14/19 01/08/20 History Strength] Patient History Medical History Alcohol abuse (Chronic) Carotid artery disease Cellulitis and abscess of left lower extremity Chronic prostatitis (Chronic) Chronic steroid use (Chronic) Difficulty swallowing (Chronic) Started approx. Nov 2018 - led to FNA of thyroid nodule Elevated PSA (Chronic) Thayer syndrome (Chronic) History of colon polyps (Chronic) History of decreased renal function (Acute) Hypertension (Chronic) Port-A-Cath in place (Acute) Reactive airway disease (Chronic) Squamous cell carcinoma of neck (Acute) Ulcer of calf Surgical History History of biopsy (Chronic) FNA of thyroid nodule showed squamous cell carcinoma 05/23/19 History of colonoscopy (Resolved) Multiple;Adenomatous poly; History of nasal septoplasty (Resolved) History of open reduction and internal fixation (ORIF) procedure (Resolved) right wrist/elbow--hardware in place;Related to fracture and a fall History of prostate biopsy (Resolved) x3--benign History of tonsillectomy and adenoidectomy (Resolved) Hx of right inguinal hernia repair (Resolved) x2 Hx of vasectomy (Resolved) S/P percutaneous endoscopic gastrostomy (PEG) tube placement (Acute) Family History Mother Endometrial cancer Father , 78yo Parkinsons Brother COPD (chronic obstructive pulmonary disease) Brother Unknown family medical history Sister Breast cancer Colorectal cancer Sleep apnea GERD (gastroesophageal reflux disease) Son Hypertension Daughter No problems noted. 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 Other Information That Helps Us Care for You: No Feels Safe at Home: Yes Safety Concerns: Feels Safe At This Time Smoking Status: Never smoker Second Hand Exposure: No ; Hx Alcohol Use: No Hx Substance Use: No Diet Comment: Only able to eat liquids/very soft foods; caffeine: Yes (1 cup/day) during the past year weight has: remained stable Review of Systems Review of Systems: per h&p Results & Data ([facility]) Vital Signs (Past 12 Hours) Vital Signs Temp Pulse Pulse Resp BP BP Pulse Ox 01/09/20 11:44 37.3 C 84 20 132/68 98 01/09/20 09:06 37.1 C 89 16 112/65 94 01/09/20 08:15 37.3 C 92 H 18 112/61 97 01/09/20 08:00 88 01/09/20 07:15 37.9 C H 91 H 16 109/56 L 97 01/09/20 06:45 37.6 C H 92 H 16 113/59 L 95 01/09/20 06:30 37.6 C H 96 H 16 129/64 97 01/09/20 06:12 37.2 C 92 H 16 103/49 L 96 01/09/20 03:18 102 H 01/09/20 01:49 37 C 86 16 115/67 99 PG Care Time/CCT Total # of Minutes Spent Total Time Spent with Patient: Total time spent is greater than 50% in coordination of care (as documented) at patient's floor/unit and/or counseling patient: Coding Level of Care Code 29910 Inpt Consult Level 2 Diagnoses Fever R50.9 Fever type: unspecified (1) Fever Fever type: unspecified Qualified Code(s): R50.9 - Fever, unspecified
[2020-01-09] MEDS ORDERED: RAPID SEQUENCE INDUCTION BAG ONE (13:32)
[2020-01-09] MEDS ORDERED: fentaNYL citrate 100 MCG/2 ML VIAL ONE (13:55)
[2020-01-09] MEDS ORDERED: MIDAZOLAM HCL 1 MG/ML 2ML VIAL ONE (13:55)
[2020-01-09] MEDS ORDERED: FENTANYL BOLUS FROM BAG IV PRN (13:57)
[2020-01-09] MEDS ORDERED: PROPOFOL BOLUS FROM BAG IV PRN (13:57)
[2020-01-09] MEDS ORDERED: STAT IV Infusion **Titration per Protocol STA ×2 (13:57→16:20)
[2020-01-09] MEDS ORDERED: ACETAMINOPHEN 325 MG TAB PO PRN (13:57)
[2020-01-09] MEDS ORDERED: ACETAMINOPHEN 1,000 MG/100 ML VIAL IV SCH (14:00)
[2020-01-09] MEDS ORDERED: fentaNYL DRIP 1,250 MCG/250 ML BAG IV SCH (14:00)
[2020-01-09] MEDS ORDERED: AMOXICILLIN/CLAVULANATE 875 MG TAB PO SCH (14:00)
[2020-01-09] MEDS ORDERED: ENTERAL NUTRITION FORMULA PEG SCH (14:00)
[2020-01-09 14:01] LABS: Hematocrit (blood only) 26.1 % (42-52); Hemoglobin 8.4 g/dL (14.0-18.0)
--- NOTE | 2020-01-09 14:09 | Hospitalist Progress Note ---
Date of Service January 09, 2020 Assessment & Plan Admission and Anticipated Discharge Date Admission Date: January 08, 2020 Subjective Pt developed massive hematemesis with fresh bright red blood vomiting became hypoxic /unresponsive /" code blue " was called Patient was evaluated by ICU team and ER attending CPR was done as per ACLS protocol pt was intubated for airway protection /had bleeding in the hypopharynx with large cancerous mass blocking the airway After 2 attempts ET tube was placed with GlideScope Placement of ET tube was confirmed Patient regained pulse after few minutes Patient is transferred to ICU. 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 Patient states that he started to develop a mass involving the neck and also had some difficulty with swallowing. He was seen by his primary care physician and referred to ENT. 05/18/2019. ENT consultation with Dr. Emily Daniels . Dr. Diaz findings include deviation of the patent larynx to the right by a firm mass greater than 10 cm that is not adherent to the skin. No other palpable lymphadenopathy noted. 05/19/2019. CT neck. A large irregular shaped mass seen at midline and left paramidline at the level of the thyroid, is beneath the left sternocleidomastoid muscle and in contact with but largely anterior to the left internal carotid arteries. Mass measures up to 58 mm transverse by 41 mm in AP dimension by perhaps 65 mm craniocaudad, at the level of the true vocal cords, extends to above the level of the true vocal cords as well as below to the level of the esophagus. The lesion is heterogeneous and enhances heterogeneously. 05/23/2019. Left thyroid, fine-needle aspiration. Malignant. Keratinizing squamous cell carcinoma. Negative for p16 and HPV. Completed combined radiation chemotherapy on 11/10/2019 And has been receiving integrated boost to feeding via PEG tube Has required intermittent PRBC transfusion in the past several week Admitted yesterday for 01/08/2020 with fever of 101 for 2 days No cough, no chest pain no shortness of breath no body ache or headache Patient has been homebound for past several months,/only outside visit include lab work at [facility], and PRBC transfusion at [facility] intermittently. no risk factor for SARS-CoV2 infection no focus of infection noted chest x-ray was clear UA negative Found to be anemic/ secondary to advanced localized esophageal malignancy, received 2 units of PRBC transfusion Been afebrile since morning, after discussing with Dr Phipps plan was to discharge home later today with p.o. Augmentin for total 10 day Around 1030 AM patient started to have gross hemoptysis, was intubated for airway protection transfer to ICU was given IV fluids /PRBC tx , then pressors for persisted [facility] Yadav and Dr Diaz were contacted possible progression of malignancy causing active bleeding over all prognosis is poor , If family willing to pursue procedure/intervention -will need to transferred to higher level of care /Recommend tx to [facility] -for possible IR guided embolization pt is already established with ENT in [place] [address] Pt's overall poor prognosis and limited tx option , pt will not be able to surv sunil next episode of with Pt's Leticia Wilson by my self and ICU team -Deon Decker PA-C does not want pt to be transferred to [place] for procedure continue supportive care for now no CPR if pt declines and have a cardiac arrest Code status changed to DNR/DNI Pt's son -Dr Cosme Wilson a family physician in [place] is driving to [place] spoke with pt's son , understands the grim prognosis , wants to discuss with the son and daughter before making decision for Hospice /palliative care Nilda Jones MD Results & Data Results & Data ([facility]) Vital Signs (Past 12 Hours) Vital Signs Temp Pulse Pulse Resp BP BP Pulse Ox 01/09/20 11:44 37.3 C 84 20 132/68 98 01/09/20 09:06 37.1 C 89 16 112/65 94 01/09/20 08:15 37.3 C 92 H 18 112/61 97 01/09/20 08:00 88 01/09/20 07:15 37.9 C H 91 H 16 109/56 L 97 01/09/20 06:45 37.6 C H 92 H 16 113/59 L 95 01/09/20 06:30 37.6 C H 96 H 16 129/64 97 01/09/20 06:12 37.2 C 92 H 16 103/49 L 96 01/09/20 03:18 102 H
[2020-01-09 14:15] LABS: Albumin Level 2.3 gm/dl (3.4-5.0); BUN Creatinine Ratio 21.8 (10-20); Calcium 9.2 mg/dl (8.5-10.1); Creatinine Clr Calc Pharmacy 71.3 ml/min; Est GFR (African American) 102.2; Est GFR (Non-African American) 88.2; Potassium 4.2 mmol/L (3.5-5.1)
[2020-01-09 14:17] LABS: INR 1.2 (0.9-1.1); Prothrombin Time 12.8 Seconds (9.0-12.0)
[2020-01-09 14:18] LABS: Albumin Globulin Ratio 0.4 (0.9-2); Globulin 5.1 gm/dl (2.5-4.0); Nucleated RBC % (auto) 1.2 %; Total Protein 7.4 gm/dl (6.4-8.2)
[2020-01-09 14:20] LABS: Mean Corpuscular Hemoglobin 31.1 pg (25-34); Mean Platelet Volume 10.2 fL (7.4-10.4); Platelet Count 310 K/uL (130-400); RDW Coefficient of Variation 20.3 % (11.5-14.5); RDW Standard Deviation 70.1 fL (36.4-46.3); White Blood Count 8.33 K/uL (4.8-10.8)
--- NOTE | 2020-01-09 14:20 | XRay Report ---
XR chest 1V portable CLINICAL HISTORY: 74 years-old Male presenting with ET tube placement. TECHNIQUE: Portable semiupright AP view of the chest was obtained. COMPARISON: 01/08/2020. FINDINGS: Endotracheal tube terminates in the midthoracic trachea 5 cm from the monica. Right internal jugular Mediport terminates at the superior cavoatrial junction. Several overlying external leads are evident . Atherosclerosis of the aortic arch. Cardiac silhouettes borderline enlarged. Mild pulmonary vascula r prominence. Significant heterogeneity of lung parenchyma. There is greater density of the right linda g in comparison to the left possibly due to patient rotation and added soft tissue. There are irregul ar bandlike opacities at the lung bases are new from prior. No large effusion or pneumothorax. Questi onable fracture of the left lateral sixth and seventh ribs. These were not evident on PET/CT from Nov ember. Old right posterolateral rib fractures. Posttraumatic deformity of the left clavicle. Suspecte d underlying osteopenia. Upper abdomen normal. IMPRESSION: 1. Interval development of irregular bandlike opacities at the lung bases, possibly extensive atelec tasis. 2. Appropriately positioned endotracheal tube. 3. Suspected left lateral sixth and seventh rib fractures. Correlate with point tenderness. These ar e age indeterminate. ACT 112: Negative or not required by law. Electronically signed by: Todd Dumont M.D. 01/09/2020 2:18 PM
[2020-01-09] MEDS ORDERED: MIDAZOLAM HCL 5 MG/ML VIAL IV STA (14:27)
[2020-01-09] MEDS ORDERED: fentaNYL citrate 100 MCG/2 ML VIAL IV STA (14:27)
[2020-01-09] MEDS: propofoL 1,000 MG/100 ML VIAL IV SCH (14:30)
[2020-01-09 14:52] LABS: ALC (manual) 2.95 K/uL (1.2-3.4); ANC (manual) 4.13 K/uL (1.4-6.5); Anisocytosis Present; Basophils # (manual) 0.29 K/uL (0-0.2); Basophils % (manual) 3.5 %; Dohle Bodies 2+; Eosinophils # (manual) 0.37 K/uL (0-0.5); Eosinophils % (manual) 4.4 %; Lymphocytes # (manual) 2.95 K/uL (1.2-3.4); Lymphocytes % (manual) 35.4 %; Monocytes # (manual) 0.52 K/uL (0.11-0.59); Monocytes % (manual) 6.2 %; Myelocytes # (manual) 0.07 K/uL (0-0); Myelocytes % (manual) 0.9 %; Neutrophils # (manual) 4.13 K/uL (1.4-6.5); Neutrophils % (manual) 49.6 %; Toxic Granulation 1+
--- NOTE | 2020-01-09 14:55 | Critical Care Consultation ---
Date of Consultation January 09, 2020 Assessment & Plan (1) Ventilator dependent: -- VDRF Likely secondary to CODE BLUE likely secondary to upper GI/airway bleeding Continue with ventilatory support Keep RASS -1 Daily sedation holidays and SBT's Transfuse unit PRBC. Monitor H&H. Get ENT involved given that the patient has bleeding likely from his hypopharyngeal tumor. If they are not able to access the bleeding then patient will need IR embolization. This will likely need transfer as we do not have IR facility here. --Acute blood loss anemia Likely secondary to bleeding from the tumor Monitor H&H Transfuse to keep hemoglobin greater than 7 --Hypotension Give IV fluids at least 30 mL/kg Along with blood Monitor the blood pressure still does not improve will think about pressors --High anion gap metabolic acidosis Secondary to lactic acidosis Status post CODE BLUE Give IV fluids repeat lactate Monitor --Iatrogenic rib fractures Likely secondary to chest compressions. No pneumothorax Monitor --Fever of unknown origin Patient had fever even in November with similar presentation This could be from his underlying malignancy itself given there is no source of infection Chest x-ray does not show any infiltrate Blood culture has been negative to date. --History of malignant squamous cell carcinoma --Prognosis guarded -- DNR Case was discussed with regarding the poor prognosis given that the patient had cardiac arrest. She understands and agrees to no CPR. I have personally spent 68 minutes of critical care time in the direct management of this patient. This is a life/limb threatening event. This includes time spent evaluating patient, direct bedside care, chart review, placing orders, interpretation of diagnostic studies, discussion with consultants, patient, and family members, as well as other required patient management activities. This time is exclusive of all separately billable procedures, and teaching time and separate from and in addition to any other critical care service time. Please note the above document was generated using voice recognition software. It may contain grammatical, syntax or spelling errors. 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 Patient denied any cough no chest pain no shortness of breath, no headache. Patient had similar episode in November where he came for neutropenic fever. Patient came in with hemoglobin of 6.6 he was transfused 2 units PRBC. In the afternoon today patient started to have hematemesis which ultimately resulted into hypoxia and CODE BLUE. Patient was successfully resuscitated and intubated. Intubation was difficult given that the history of hypopharyngeal mass. Patient has size 6 tube. Plan was actually discharge the patient home on Augmentin as he was hemodynamically stable in the morning. Patient was subsequently brought to the ICU. He was hypotensive was given a liter of bolus and 1 unit PRBC was stat ordered. Allergies Allergy/AdvReac Type Severity Reaction Status Date / Time silver sulfadiazine Allergy Rash Verified 01/08/20 20:34 [From Indiradenmichelle] Home Medications Home Medications Medication Instructions Recorded Confirmed Type albuterol sulfate [ProAir HFA] 2 puff INHALATION QID PRN 06/02/19 01/08/20 History zolpidem 10 mg tablet 10 mg FEEDING TUBE HS tab 10/31/19 01/08/20 History acetaminophen [Tylenol Extra 500 mg FEEDING TUBE Q6H PRN 11/14/19 01/08/20 History Strength] Patient History Medical History Alcohol abuse (Chronic) Carotid artery disease Cellulitis and abscess of left lower extremity Chronic prostatitis (Chronic) Chronic steroid use (Chronic) Difficulty swallowing (Chronic) Started approx. Nov 2018 - led to FNA of thyroid nodule Elevated PSA (Chronic) Auburn syndrome (Chronic) History of colon polyps (Chronic) History of decreased renal function (Acute) Hypertension (Chronic) Port-A-Cath in place (Acute) Reactive airway disease (Chronic) Squamous cell carcinoma of neck (Acute) Ulcer of calf Surgical History History of biopsy (Chronic) FNA of thyroid nodule showed squamous cell carcinoma 05/23/19 History of colonoscopy (Resolved) Multiple;Adenomatous poly; History of nasal septoplasty (Resolved) History of open reduction and internal fixation (ORIF) procedure (Resolved) right wrist/elbow--hardware in place;Related to fracture and a fall History of prostate biopsy (Resolved) x3--benign History of tonsillectomy and adenoidectomy (Resolved) Hx of right inguinal hernia repair (Resolved) x2 Hx of vasectomy (Resolved) S/P percutaneous endoscopic gastrostomy (PEG) tube placement (Acute) Family History Mother Endometrial cancer Father , 78yo Parkinsons Brother COPD (chronic obstructive pulmonary disease) Brother Unknown family medical history Sister Breast cancer Colorectal cancer Sleep apnea GERD (gastroesophageal reflux disease) Son Hypertension Daughter No problems noted. 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 Other Information That Helps Us Care for You: No Feels Safe at Home: Yes Safety Concerns: Feels Safe At This Time Smoking Status: Never smoker Second Hand Exposure: No ; Hx Alcohol Use: No Hx Substance Use: No Diet Comment: Only able to eat liquids/very soft foods; caffeine: Yes (1 cup/day) during the past year weight has: remained stable Review of Systems Review of Systems: Unobtainable due to cognitive status and Unobtainable due to endotracheal tube Physical Exam Physical Exam: Constitutional: Sedated HEENT: PERRLA, trachea deviated to the right, left neck mass appreciated with fistula Respiratory system: Good air entry bilaterally, no wheeze, no rhonchi, no crackles CVS: S1-S2 positive, no murmurs or gallops Abdomen: Soft, nontender, nondistended, positive bowel sounds x4 Extremities: + 1 pulses bilaterally radialis/ dorsalis pedis, no cyanosis, no edema Neuro: Unable to assess Psych: Normal mood and affect G/U: Positive Akhtar Skin: no rashes, warm and dry Lymphatic: no cervical or axillary lymphadenopathy Results & Data Results & Data ([facility]) Vital Signs (Past 12 Hours) Vital Signs Temp Pulse Pulse Resp BP BP Pulse Ox 01/09/20 14:45 38.2 C H 114 H 20 111/72 100 01/09/20 14:42 38.3 C H 116 H 20 93/54 L 100 01/09/20 14:30 38.2 C H 116 H 20 98/59 L 100 01/09/20 14:15 38.4 C H 119 H 18 77/58 L 99 01/09/20 13:57 134 H 28 H 100 01/09/20 11:44 37.3 C 84 20 132/68 98 01/09/20 09:06 37.1 C 89 16 112/65 94 01/09/20 08:15 37.3 C 92 H 18 112/61 97 01/09/20 08:00 88 01/09/20 07:15 37.9 C H 91 H 16 109/56 L 97 01/09/20 06:45 37.6 C H 92 H 16 113/59 L 95 01/09/20 06:30 37.6 C H 96 H 16 129/64 97 01/09/20 06:12 37.2 C 92 H 16 103/49 L 96 01/09/20 03:18 102 H 01/09/20 13:35 01/09/20 13:35 Coding Level of Care Code Critical Care 1st 30-74 mins Diagnoses Ventilator dependent Z99.11 Malignant neoplasm of head and neck C76.0 Squamous cell carcinoma of neck C44.42 Anemia D64.9 Anemia type: unspecified type Time Spent (min) 68 (1) Anemia Anemia type: unspecified type Qualified Code(s): D64.9 - Anemia, unspecified
[2020-01-09 14:57] LABS: Mean Corpuscular Hgb Conc 32.2 g/dL (32-36); Mean Corpuscular Volume 97.4 fL (80-100)
--- NOTE | 2020-01-09 15:01 | Electrocardiogram Report ---
Test Reason : Blood Pressure : / mmHG Vent. Rate : 113 BPM Atrial Rate : 113 BPM P-R Int : 134 ms QRS Dur : 084 ms QT Int : 340 ms P-R-T Axes : 059 -57 055 degrees QTc Int : 466 ms Sinus tachycardia with Premature atrial complexes Left axis deviation Abnormal ECG No previous ECGs available Confirmed by Home Mckeon ([id number]) on 01/09/2020 3:01:12 PM Referred By: REFERRED SELF Confirmed By:Home Mckeon
[2020-01-09] MEDS ORDERED: PIPERACILL/TAZOBAC CONSULT ACTIVE PRN (15:41)
--- NOTE | 2020-01-09 15:58 | Emergency Department Note ---
ED Visit Note Called to bedside for code blue and airway managment. Endotracheal Intubation Indication: Upper GI/Upper Airway bleeding; Airway protection Suction, airway equipment, RSI drugs, respiratory equipment, and appropriate personnel were prepared prior to the initiation of the procedure. Attempted intubation without sedation/paralysis given neck mass and concern that if paralytic was given and unable to secure airway the patient would not be able to be ventilated. Intubation without paralytic unsuccesful. Induction was performed with Etomidate 20 mg. Succinylcholine 100 mg was given for paralysis. After observing the clinical benefit of the medications, direct laryngoscopy was attempted. Copious amounts of blood were suctioned from the patients airway. After suction, the airway appeared very edematous and the anatomy was significanlty distorted. Intubation via direct laryngoscopy with Mac 3 unsuccessful. Glideoscope was used and was able to visualize cords with an extremely edematous airway and epiglottis. Was unable to pass 7.0 ETT due to edema of airway. Bougie was used and a 6.0 ETT was exchanged for the 7.0 ETT. A 6.0 size ETT tube was placed. The cuff inflated without signs of malfunction. There were bilateral breath sounds, positive colormetric change, no gastric sounds, a good capnography waveform. . : Sepsis Qualifiers: Sepsis type: sepsis due to unspecified organism Sepsis acute organ dysfunction status: without acute organ dysfunction Qualified Code(s): A41.9 - Sepsis, unspecified organism Anemia Qualifiers: Anemia type: unspecified type Qualified Code(s): D64.9 - Anemia, unspecified Fever Qualifiers: Fever type: unspecified Qualified Code(s): R50.9 - Fever, unspecified
[2020-01-09] MEDS ORDERED: PIPERACILLIN/TAZOBACTAM 4.5 GM in DEXTROSE 5% 100 ML IV ONE (16:00)
[2020-01-09] MEDS ORDERED: SODIUM CHLORIDE 0.9% 1000ML 1,000 ML IV SCH (16:30)
[2020-01-09] MEDS ORDERED: NOREPINEPHRINE BIT INJ 8 MG in DEXTROSE 5% 500 ML IV SCH (16:30)
[2020-01-09] MEDS ORDERED: SODIUM CHLORIDE 0.9% 500 ML IV SCH (16:30)
[2020-01-09 17:34] LABS: Hematocrit (blood only) 19.3 % (42-52); Hemoglobin 6.3 g/dL (14.0-18.0); Mean Corpuscular Hgb Conc 32.6 g/dL (32-36); Mean Corpuscular Volume 91.9 fL (80-100); Mean Platelet Volume 9.5 fL (7.4-10.4); Platelet Count 171 K/uL (130-400); RDW Coefficient of Variation 17.7 % (11.5-14.5); RDW Standard Deviation 56.3 fL (36.4-46.3); White Blood Count 2.89 K/uL (4.8-10.8)
[2020-01-09 17:37] LABS: Basophils # (manual) 0.03 K/uL (0-0.2); Basophils % (manual) 0.9 %; Eosinophils # (manual) 0.03 K/uL (0-0.5); Eosinophils % (manual) 0.9 %; Lymphocytes % (manual) 13.8 %; Monocytes # (manual) 0.34 K/uL (0.11-0.59); Monocytes % (manual) 11.9 %; Neutrophils % (manual) 72.5 %; RBC Morphology Unremarkable
[2020-01-09 17:41] LABS: Hematocrit (blood only) 20.8 % (42-52); Hemoglobin 7.1 g/dL (14.0-18.0); Mean Corpuscular Hemoglobin 31.3 pg (25-34); Mean Corpuscular Hgb Conc 34.1 g/dL (32-36); Mean Corpuscular Volume 91.6 fL (80-100); Mean Platelet Volume 9.2 fL (7.4-10.4); Platelet Count 183 K/uL (130-400); RDW Coefficient of Variation 17.7 % (11.5-14.5); RDW Standard Deviation 55.8 fL (36.4-46.3); Red Blood Count 2.27 M/uL (4.7-6.1); White Blood Count 4.29 K/uL (4.8-10.8)
[2020-01-09 18:12] LABS: ANC (manual) 3.29 K/uL (1.4-6.5); Basophils % (manual) 2.3 %; Eosinophils # (manual) 0.05 K/uL (0-0.5); Eosinophils % (manual) 1.2 %; Lymphocytes % (manual) 9.3 %; Monocytes % (manual) 9.3 %; Myelocytes # (manual) 0.05 K/uL (0-0); Myelocytes % (manual) 1.2 %; Neutrophils # (manual) 3.29 K/uL (1.4-6.5); Neutrophils % (manual) 76.7 %; Toxic Granulation 1+
[2020-01-09 19:22] VITALS: O2SAT 100
[2020-01-09] MEDS ORDERED: ZOLPIDEM TARTRATE 10 MG TAB PO SCH (21:00)
[2020-01-09] MEDS: ACETAMINOPHEN 1,000 MG/100 ML VIAL IV PRN (21:56)
[2020-01-09] MEDS ORDERED: PIPERACILLIN/TAZOBACTAM 4.5 GM in DEXTROSE 5% 100 ML IV SCH (22:00)
[2020-01-09 22:43] LABS: Hematocrit (blood only) 21.7 % (42-52); Hemoglobin 7.4 g/dL (14.0-18.0)
[2020-01-10] MEDS: propofoL 1,000 MG/100 ML VIAL IV SCH (00:24)
[2020-01-10] MEDS ORDERED: TXA 10% Non-IV Routes 100 MG/ML VIAL NEB ONE ×2 (02:00→03:30)
[2020-01-10 02:03] LABS: Hematocrit (blood only) 21.6 % (42-52); Hemoglobin 7.4 g/dL (14.0-18.0); Mean Corpuscular Hemoglobin 30.5 pg (25-34); Mean Corpuscular Volume 88.9 fL (80-100); Mean Platelet Volume 9.1 fL (7.4-10.4); Platelet Count 188 K/uL (130-400); RDW Coefficient of Variation 18.3 % (11.5-14.5); RDW Standard Deviation 54.8 fL (36.4-46.3); Red Blood Count 2.43 M/uL (4.7-6.1); White Blood Count 4.42 K/uL (4.8-10.8)
[2020-01-10 02:05] LABS: Mean Corpuscular Hgb Conc 34.3 g/dL (32-36)
[2020-01-10] MEDS ORDERED: OXYMETAZOLINE 0.05% 30 ML BTL ONE (02:15)
--- NOTE | 2020-01-10 02:24 | Communication Note ---
Date of Service: January 10, 2020 Around 0130, I was called emergently to bedside as the patient was having a substantial amount of bleeding from his mouth. Upon assessment, the patient was having significant amounts of bright red blood from both sides of the endotracheal tube. He was noted to have blood coming from his nose as well. We did perform multiple rounds of suction. Verbal orders were placed for transfusion of blood as well as nebulized TXA. ER staff was kind enough to bring their ENT cart to the ICU. From this, I was able to procure nasal packing which I placed in the bilateral nares after soaking with Afrin. I was able to pack the patient's mouth using gauze soaked with TXA. This did seem to help subside the bleeding. Contacted , Leticia ([phone]) at [phone] after patient had stabilized. I had a lengthy conversation with her regarding patient's condition. Initially, she stated that she and her family did want to see him, but were going to wait t ill 9:00 as previously discussed with hospitalist attending. I did inform the that I was uncertain that if he were to bleed again, he likely would not survive. At this point, arrangements were made as this is an extenuating circumstance regarding decision for comfort measures and for eminent demise, and family did elect to present to the hospital to say there goodbyes to their family member. This decision was relayed to clinical coordinator who kindly helped aid in making this possible for family, particularly in light of the current COVID-19 pandemic. Sometime around 0400, the patient was noted to have return of significant bleeding. I did present immediately to bedside. At this point, I was unsuccessfully able to stop the bleeding. The mouth was again packed temporarily with TXA soaked gauze while I was able to meet the family in the waiting room to discuss current situation. At this point, they are in understanding and wished to see their family member individually which was accommodated. After meeting, I did speak with the patient's who states that at this point, they would like to keep him intubated, but strictly focus on comfort. They do not want any change of care. I did discontinue his propofol drip as this was stopped during his prior episode as we are hoping to have his sedation lightened to be interactive with his family. After his family left, the patient had ongoing bleeding and worsening agitation. Patient was provided one-time dose of IV morphine. Morphine drip was ordered, but the patient unfortunately began to rapidly decline and became more bradycardic and essentially terminal at this point. He was never started on the morphine drip. Patient eventually became asystolic at 0449. Please see separate note. I have personally spent 60 minutes of critical care time in the direct management of this patient. This is a life/limb threatening event. This includes time spent evaluating patient, direct bedside care, chart review, placing orders, interpretation of diagnostic studies, discussion with consultants, patient, and family members, as well as other required patient management activities. This time is exclusive of all separately billable procedures, and teaching time and separate from and in addition to any other critical care service time. Coding Level of Care Code Critical Care 1st 30-74 mins Time Spent (min) 60
[2020-01-10 02:34] LABS: ALC (manual) 0.31 K/uL (1.2-3.4); ANC (manual) 3.36 K/uL (1.4-6.5); Basophils # (manual) 0.12 K/uL (0-0.2); Basophils % (manual) 2.7 %; Dohle Bodies 3+; Eosinophils # (manual) 0.31 K/uL (0-0.5); Eosinophils % (manual) 7.1 %; Giant Platelets 1+; Lymphocytes # (manual) 0.31 K/uL (1.2-3.4); Lymphocytes % (manual) 7.1 %; Metamyelocytes # (manual) 0.04 K/uL (0-0); Metamyelocytes % (manual) 0.9 %; Monocytes # (manual) 0.19 K/uL (0.11-0.59); Monocytes % (manual) 4.4 %; Myelocytes # (manual) 0.08 K/uL (0-0); Myelocytes % (manual) 1.8 %; Neutrophils # (manual) 3.36 K/uL (1.4-6.5); Toxic Granulation 2+; Toxic Vacuolation 1+
[2020-01-10] MEDS: SODIUM CHLORIDE 0.9% 1000ML 1,000 ML IV SCH (02:44)
[2020-01-10 03:00] LABS: Creatinine Clr Calc Pharmacy 62.1 ml/min; Est GFR (African American) 94.1; Est GFR (Non-African American) 81.2
[2020-01-10 03:11] LABS: Albumin Level 1.5 gm/dl (3.4-5.0); BUN Creatinine Ratio 34.5 (10-20); Bilirubin Direct 0.4 mg/dl (0-0.2); Creatinine Clr Calc Pharmacy 60.8 ml/min; Est GFR (African American) 91.7; Est GFR (Non-African American) 79.1; Magnesium 1.5 mg/dl (1.8-2.4); Phosphorus 3.9 mg/dl (2.5-4.9); Potassium 3.6 mmol/L (3.5-5.1); Total Protein 5.1 gm/dl (6.4-8.2)
[2020-01-10] MEDS: ACETAMINOPHEN 1,000 MG/100 ML VIAL IV PRN (03:14)
[2020-01-10] MEDS ORDERED: MoRPHine SULFATE 2 MG/ML CARP IV STA (03:53)
[2020-01-10 04:01] LABS: Fibrinogen 422 mg/dl (184-400); INR 1.1 (0.9-1.1); Prothrombin Time 11.9 Seconds (9.0-12.0)
[2020-01-10] MEDS ORDERED: STAT IV Infusion **Titration per Protocol STA (04:07)
[2020-01-10 04:11] LABS: D Dimer 3050 ug/L FEU (0-500)
[2020-01-10] MEDS ORDERED: MoRPHine SULF/NSS 250 MG/250 ML BTL IV SCH (04:15)
[2020-01-10] MEDS ORDERED: MoRPHine BOLUS FROM BAG IV ONE (04:30)
[2020-01-10 04:43] VITALS: BP 61/42; PULSE 96
[2020-01-10] MEDS ORDERED: ETOMIDATE 2 MG/ML 20 ML VIAL IV ONE (04:48)
[2020-01-10] MEDS ORDERED: SUCCINYLCHOLINE CHLORIDE 20 MG/ML 10 ML VIAL IV ONE (04:48)
[2020-01-10] MEDS ORDERED: SODIUM CHLORIDE 0.9% 10ML FLUSH IV ONE (04:48)
--- NOTE | 2020-01-10 04:56 | Death Pronouncement Note ---
Date of Service January 10, 2020 Date: 01/10/2020 Time: 448 I was contacted by nursing staff regarding the patients declining status and concerns for imminent demise. 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 Patient was a CODE BLUE yesterday with episode of significant bleeding in the mouth requiring emergent endotracheal intubation which was thankfully able to be performed despite the patient's compromised airway. Patient received resuscitative efforts with blood as well as pressors. Family discussion was to make the patient DNR at this time, but continue with current treatment. Throughout the night, patient had return of profound bleeding from the head/neck area on 2 separate occasions resulting in family's decision to ultimately continue to make patient comfort without escalation of care. Patient continued to have bleeding which ultimately resulted and demise at 044. Assessment: I presented to the patients room for evaluation. Upon assessment, the patient was found to be in a terminal state. Pupils were fixed and dilated without response. No palpable pulses appreciated. No spontaneous breaths noted. Heart sounds were absent. No response to painful stimuli. Time of : 448 as pronounced by myself. Personally called the patient's to inform her of time of . Appropriate response to grief appreciated. Condolences provided. Questions were addressed and emotional support was provided. Patients primary service was contacted and made aware of patient demise. Pronouncement section of the Certificate was filled out and signed by myself. Cause of : Primary - Hemorrhage Secondary - Squamous Cell Carcinoma of the Neck Please feel free to contact me with any questions regarding the above-mentioned course. Pronouncement Note Admission Date Admission Date: January 08, 2020 Contributing Factors (1) Ventilator dependent: (2) Malignant neoplasm of head and neck: (3) Squamous cell carcinoma of neck: (4) Anemia: Additional Data Attending physician: Nilda Jones MD Coding Level of Care Code None Diagnoses Ventilator dependent Z99.11 Malignant neoplasm of head and neck C76.0 Squamous cell carcinoma of neck C44.42 Anemia D64.9 Anemia type: unspecified type
[2020-01-10 05:10] VITALS: TEMP 100.2
[2020-01-10] MEDS ORDERED: VANCOMYCIN TROUGH SCH (08:30)
--- NOTE | 2020-01-10 12:04 | Discharge Summary ---
Date of Service January 10, 2020 Admission HPI Per Admitting Provider DICTATED BY: Johan Holland MD DATE OF ADMISSION: 01/08/2020 CHIEF COMPLAINT: Fever. 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 Presents with fever since last few days. The patient was here in November with high fever. At that time, he was treated for neutropenic fever, cultures were negative, and he was also given Neupogen at that time. He did fine and he got discharged and he also received 4 units of PRBCs last admission for anemia. The patient since last 4 days he is having high fevers, today it was 103 degrees, which prompted him to come to the ER. Denies any cough, no shortness of breath, no chest pain, no nausea, no vomiting, no abdominal pain, no headaches, no blurred vision, no earache, no runny nose, no sore throat. He does not take anything orally. He is on tube feeds. In the left side of his neck, he has chronic mild drainage from his cancer, .No rash. Says has pruritus since last admission in the hospital. Ambulates okay. Lives with his . Currently resting comfortably and hemodynamically stable. 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 admitted on 01/08/20 for fever 2 days duration was found to be anemic recived PRBC tx no focus of infection identified was plan to dc home on 01/09/20 with PO abx Pt developed massive hematemesis with fresh bright red blood vomiting in afternoon of 01/09/20 became hypoxic /unresponsive /" code blue " was called Patient was evaluated by ICU team and ER attending CPR was done as per ACLS protocol pt was intubated for airway protection /had bleeding in the hypopharynx with large cancerous mass blocking the airway After 2 attempts ET tube was placed with GlideScope Placement of ET tube was confirmed Patient regained pulse after few minutes Patient is transferred to ICU. Pt possible started to bleed at the hypopharyngeal malignant tumor over all prognosis /chance of survival is extremely poor case D/w [facility] -recommends [facility] [place] for possible embolization pt already established with ENT in [place] did not want tx pt to [place], as his chance of servival from this malignancy is very low the [id number] bleeding from the tomor site may be due to recurrence of ca with progression and local invasion to blood vessels code status was made DNR/DNI by Pt's family was willing to transition care to hospice in AM PER ICU TEAM NOTE OVERNIGHT : Date: 01/10/2020 Time: 448 I was contacted by nursing staff regarding the patients declining status and concerns for imminent demise. 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 Patient was a CODE BLUE yesterday with episode of significant bleeding in the mouth requiring emergent endotracheal intubation which was thankfully able to be performed despite the patient's compromised airway. Patient received resuscitative efforts with blood as well as pressors. Family discussion was to make the patient DNR at this time, but continue with current treatment. Throughout the night, patient had return of profound bleeding from the head/neck area on 2 separate occasions resulting in family's decision to ultimately continue to make patient comfort without escalation of care. Patient continued to have bleeding which ultimately resulted and demise at 448. Assessment: I presented to the patients room for evaluation. Upon assessment, the patient was found to be in a terminal state. Pupils were fixed and dilated without response. No palpable pulses appreciated. No spontaneous breaths noted. Heart sounds were absent. No response to painful stimuli. Time of : 448 as pronounced by myself. Personally called the patient's to inform her of time of . Appropriate response to grief appreciated. Condolences provided. Questions were addressed and emotional support was provided. Patients primary service was contacted and made aware of patient demise. Pronouncement section of the Certificate was filled out and signed by myself. Cause of : Primary - Hemorrhage Secondary - Squamous Cell Carcinoma of the Neck Total Time Total Time Spent Total Time Spent (In Minutes): PATIENT Discharge Plan Discharge Items Patient Disposition: Reason For Visit: FEVER Discharge Diagnosis: PATIENT CAUSE OF : ACUTE BLOOD LOSS /HEMORRHAGE FORM ADVANCED SQ CELL CARCINOMA OF HYPOPHARYNX Condition on Discharge: Fair Addtl Attending Provider Instructions: pt after transition to comfort care /hospice Admission Data Admit Date/Time: 01/08/20 23:00 Other DC Date/Time DO NOT enter until pt leaves facility: 01/10/20 04:49
== END 2020-01-10 04:49 | disposition expired | DRG 146 ==
LOC: ED 19:33 → 2N 23:00 → 1E 01-09 14:05